=== PATIENT | male | born 1950 | race Caucasian/White ===

== ENCOUNTER → 2020-02-25 10:58 | Outpatient (POV) | payer MEDICARE, SELFPAY | PROVIDERS: Visit Provider Dermatology | DX: Z00.00 Encounter for general adult medical examination without abnormal findings (principal) ==

== ENCOUNTER → 2020-03-31 09:07 | Outpatient (POV) | payer MEDICARE, SELFPAY | PROVIDERS: Visit Provider Dermatology | DX: Z00.00 Encounter for general adult medical examination without abnormal findings (principal) ==

== ENCOUNTER → 2020-07-07 09:28 | Outpatient (POV) | payer MEDICARE, SELFPAY | PROVIDERS: Visit Provider Dermatology | DX: Z00.00 Encounter for general adult medical examination without abnormal findings (principal) ==

== ENCOUNTER 2020-08-30 14:33 | Emergency (ER) | payer MEDICARE, SELFPAY ==
[2020-08-30 14:38] VITALS: BP 132/70; PULSE 80; RESP 16; TEMP 36.8; O2SAT 98; BMI 26.5
[2020-08-30 14:45] VITALS: BP 132/70; PULSE 80; RESP 16; TEMP 36.8; O2SAT 98; BMI 26.4
--- NOTE | 2020-08-30 15:01 | CA_ITS ---
APPROVED REPORT Right Lower Extremity Venous Study for DVT. Junior Accountant: Melanie Win RVT Indications Lower Extremity Pain: Right Lower Extremity Edema: Right LEG PAIN AND SWELLING,NKI Vein Imaging CFV (R): compressive, spontaneous, phasic, augmentation FEM (R): compressive, spontaneous, phasic, augmentation POP (R): compressive, spontaneous, phasic, augmentation PTV (R): Compressible GSV (R): Compressible Peroneals (R):Compressible GAS (R): Compressible Findings Study suggests no evidence of DVT of the right lower extremity. Study suggests no evidence of SVT of the right lower extremity. Conclusion Study suggests no evidence of DVT of the right lower extremity. Study suggests no evidence of SVT of the right lower extremity. Critical Notification Physician Notified Date: 08/30/2020 Time: 16:28 Physician Name: Miranda Cabello Electronically signed by : Charlie Chavez MD 08/31/2020 16:52:53
--- NOTE | 2020-08-30 16:27 | HMH.EDUTC ---
[facility] [place] Disposition Clinical Impression: Right leg pain Disposition: Home, Self-Care Condition on Discharge: Good Instructions: DI for Leg Pain Additional Instructions: Rest the extremity, Elevate the extremity as tolerated while you are resting. Take ibuprofen for pain. I sent in a prescription to your pharmacy. Follow up with Dr. Causey (orthopedics) if you continue to have leg pain. I put in a referral but you need to call her office and schedule an appointment. Follow up with your regular doctor. GO TO THE ER FOR ANY WORSENING SYMPTOMS Prescriptions: Ibuprofen [Ibuprofen 600mg Tablet] 600 mg PO Q6HP PRN #30 tab PRN Reason: Mild Pain Transmission Status: Received by [facility] Referrals: Miranda Paris MD [Primary Care Provider] - Sarah Causey MD [Physician] - Time of Disposition: 16:33 Medical Decision Making - Medical Records Medical records reviewed: No: I reviewed the patient's medical records. - Isaias Inquiry Pt receiving controlled substance: No Vital Signs: 08/30/20 14:38 08/30/20 14:45 08/30/20 16:36 Temperature 98.2 F 98.2 F 98.2 F Temperature Source Oral Oral Pulse Rate 80 Pulse Rate [Right] 80 80 Respiratory Rate 16 16 16 Blood Pressure 132/70 Blood Pressure [Right Arm] 132/70 132/70 Blood Pressure Mean [Right Arm] 90 90 Blood Pressure Source [Right Arm] Automatic Cuff Automatic Cuff Blood Pressure Position [Right Arm] Sitting Sitting 02 Sat by Pulse Oximetry 98 98 Oxygen Delivery Method Room Air Room Air - US Data US Images: Lower Extremity ED US Reviewed: Yes: I have reviewed the patient's US results, I have viewed radiologist's interpretation Preliminary Findings: Normal/NAD [facility] [place] HPI - General Stated complaint: right leg pain, no accident Time Seen by Provider: 08/30/20 16:27 Mode of Arrival: Ambulatory Source of Information: Patient Limitations: No Limitations Description of Symptoms (Recalled from Triage Doc. by RN): PATIENT C/O RIGHT LEG PAIN X 2 WEEKS. NO KNOWN INJURY. HEENT Symptoms (Recalled from RN notes): No Resp Symptoms (Recalled from RN notes): No Skin Symptoms (Recalled from RN notes): No MS Symptoms (Recalled from RN notes): Yes Functional Status (Recalled from RN notes): WNL - History of Present Illness Provider Complaint: He c/o right leg pain for the past 2 weeks. He denies any known injury. He is worried about having a blood clot in his leg. He denies any personal or family history of dvt's. He denies any chest pain or shortness of breath. - Related Data Home Medications Medication Instructions Recorded Confirmed cardioplegic no.20 (maint 4:1) 20 20 meq PO DAILY 10/24/17 05/29/18 mEq/810 mL (potassium) perfusion ferrous fumarate 325 mg (106 mg 325 mg PO DAILY 10/24/17 05/29/18 iron) tablet sucralfate 100 mg/mL oral 10 ml PO QID 10/24/17 05/29/18 suspension triamterene 37.5 1 cap PO QAM 10/24/17 05/29/18 mg-hydrochlorothiazide 25 mg capsule Sod Picosulf/Mag Ox/Citric AC 1 packet PO DAILY 05/16/18 05/29/18 [Prepopik] Atorvastatin Calcium [Lipitor 40mg 40 mg PO HS 08/30/20 08/30/20 Tab] Previous Rx's Medication Instructions Recorded Ibuprofen [Ibuprofen 600mg 600 mg PO Q6HP PRN #30 tab 08/30/20 Tablet] Allergies Allergy/AdvReac Type Severity Reaction Status Date / Time No Known Allergies Allergy Verified 05/29/18 13:12 - Worker's Comp Is this a Worker's Comp case?: No [facility] History - Hepatitis A Screen Drug use history?: No High risk sexual behaviors?: No History of sexually transmitted infection?: No Currently employed?: No Childcare worker?: No Do you have indoor plumbing?: Yes Do you have electricity?: Yes Attestation statement:: This patient has been screened for Hepatitis A risk factors. I have reviewed the patient's past medical history: Yes Medical History: Reports:: Hyperlipidemia, Hypertension Denies:: Diabetes Mellitus Ty
[2020-08-30 16:36] VITALS: BP 132/70; PULSE 80; RESP 16; TEMP 36.8; O2SAT 98
== END 2020-08-30 16:40 | disposition home or self-care (01) ==
PROVIDERS: Emergency Provider Nurse Practitioner Family; PCP Family Medicine
DX: M79.661 Pain in right lower leg (principal); I10 Essential (primary) hypertension; E78.5 Hyperlipidemia, unspecified; Z79.899 Other long term (current) drug therapy
CPT/HCPCS: G0463; 93971; 99202

== ENCOUNTER → 2020-09-25 08:47 | Outpatient (CLI) | payer MEDICARE, SELFPAY ==
--- NOTE | 2020-09-25 08:56 | XR_ITS ---
PROCEDURE: XR TIBIA FIBULA RT 2V CLINICAL INDICATION: Rt leg pain COMPARISON: No exams were available for comparison FINDINGS: The tibia and fibula appear intact no evidence of recent or old fracture. Moderate spurring of tibial spines. There is very subtle questionable increased opacity above the patella in the suprapatellar bursa and small effusion cannot be excluded but is somewhat incompletely evaluated. If of clinical suspicion of joint effusion follow-up knee films may be helpful for evaluation. There is mild diffuse soft tissue swelling over the patella which could be due to contusion. IMPRESSION: Minor degenerate change, very questionable suprapatellar joint effusion and clinically suspicious follow-up films of the knee may be helpful. Dictated by: Dr. Ildefonso Hancock MD 09/25/2020 09:13 Dr. Ildefonso Hancock MD in [place] 09/25/2020 09:13
--- NOTE | 2020-09-25 09:49 | XR_ITS ---
PROCEDURE: XR HIP RT 2-3V W/PELVIS CLINICAL INDICATION: Rt knee/Rt hip pain COMPARISON: No exams were available for comparison FINDINGS: There are minimal osteoarthritic changes of the hips. No acute fracture or dislocation. No lytic or blastic change. Ossification of the iliolumbar ligaments. IMPRESSION: Mild osteoarthritis of the hips Dictated by: Charlie Chavez MD 09/25/2020 12:37 Charlie Chavez MD in [place] 09/25/2020 12:37
--- NOTE | 2020-09-25 09:49 | XR_ITS ---
PROCEDURE: XR KNEE RT 4V CLINICAL INDICATION: RT knee COMPARISON: No exams were available for comparison FINDINGS: No fracture or dislocation. No lytic or blastic change. There is normal mineralization. The joint spaces are well-preserved. No significant degenerative/arthritic changes. No erosive changes evident. Other findings:None. IMPRESSION: No acute findings. Dictated by: Charlie Chavez MD 09/25/2020 12:33 Charlie Chavez MD in [place] 09/25/2020 12:33
== END ==
PROVIDERS: PCP Family Medicine; Visit Provider Orthopaedic Surgery
DX: M79.604 Pain in right leg (principal); M25.551 Pain in right hip; M25.561 Pain in right knee
CPT/HCPCS: 73502; 73564; 73590

== ENCOUNTER → 2020-09-30 14:28 | Outpatient (CLI) | payer MEDICARE, SELFPAY | PROVIDERS: PCP Family Medicine; Visit Provider Orthopaedic Surgery | DX: I70.213 Atherosclerosis of native arteries of extremities with intermittent claudication, bilateral legs (principal) | CPT/HCPCS: 93923 ==

== ENCOUNTER 2021-05-14 10:26 | Emergency (ER) | payer MEDICARE, SELFPAY ==
[2021-05-14 10:30] VITALS: BP 139/82; PULSE 70; RESP 19; TEMP 36.7; O2SAT 97; BMI 29.5
--- NOTE | 2021-05-14 10:40 | XR_ITS ---
PROCEDURE: XR KNEE LT 3V CLINICAL INDICATION: PAIN COMPARISON: No exams were available for comparison FINDINGS: No fracture or dislocation. No lytic or blastic change. There is normal mineralization. There is moderate joint space narrowing medially and there is mild spurring of the tibial spines. The patella appears normal and there is no definite effusion. There is no fracture or loose body. Other findings:None. IMPRESSION: Mild degenerate change involving the medial joint space Dictated by: Dr. Ildefonso Hancock MD 05/14/2021 11:46 Dr. Ildefonso Hancock MD in [place] 05/14/2021 11:46
--- NOTE | 2021-05-14 11:07 | HMH.EDUTC ---
[facility] [place] Disposition Clinical Impression: Knee pain Qualifiers: Chronicity: unspecified Laterality: left Qualified Code(s): M25.562 - Pain in left knee Disposition: Home, Self-Care Condition on Discharge: Good Instructions: DI for Knee Pain, Diclofenac Topical (arthritis pain) Additional Instructions: *weight bearing as tolerated *RICE, Rest the extremity, Ice 15-20 minutes 3-4 times daily, Compress- wear the atif wrap as discussed as much as possible to help reduce swelling and pain, Elevate the extremity when at rest *Atif wrap is for support and help control swelling, use it except in the shower. Be sure that is not to tight but not to loose either *Elevate when resting *Topical medication applied to knee every 12 hours as needed for pain an inflammation. If need something more can take Tylenol in between doses of Ibuprofen to help Immediately follow up with your family doctor for new or worsening of symptoms, or no noticeable improvement over the next 3-5 days Return if needed Follow up with your Family Doctor if needed Prescriptions: Diclofenac Sodium [Diclofenac Sod 100gm Topical Gel] 1 g TP BID PRN #100 gm PRN Reason: Moderate Pain Transmission Status: [facility] Referrals: Miranda Paris MD [Primary Care Provider] - As needed Time of Disposition: 12:03 Medical Decision Making - Isaias Inquiry Pt receiving controlled substance: No Isaias was queried for this patient: No Vital Signs: 05/14/21 10:30 05/14/21 12:03 Temperature 98.1 F 98.1 F Temperature Source Oral Pulse Rate 70 Pulse Rate [Right Brachial] 70 Respiratory Rate 19 19 Blood Pressure 139/82 Blood Pressure [Right Arm] 139/82 Blood Pressure Mean [Right Arm] 101 Blood Pressure Source [Right Arm] Automatic Cuff Blood Pressure Position [Right Arm] Sitting 02 Sat by Pulse Oximetry 97 Oxygen Delivery Method Room Air - Lab Data Lab Results 05/14/21 10:55: Uric Acid 5.3 - Radiology Data #1 Image(s): Knee Image Reviewed: Yes I have reviewed radiologist's interpretation IMPRESSION: Mild degenerate change involving the medial joint space [facility] [place] HPI - General Stated complaint: lt knee Time Seen by Provider: 05/14/21 11:07 Mode of Arrival: Ambulatory Source of Information: Patient Limitations: No Limitations Description of Symptoms (Recalled from Triage Doc. by RN): PATIENT C/O LEFT KNEE PAIN X 1 WEEK. DENIES ANY INJURY HEENT Symptoms (Recalled from RN notes): No Resp Symptoms (Recalled from RN notes): No Skin Symptoms (Recalled from RN notes): No MS Symptoms (Recalled from RN notes): Yes Functional Status (Recalled from RN notes): WNL - History of Present Illness Provider Complaint: Patient states that he has been having pain in left knee for about a week with no known injury States that pain is on the inner aspect of his left knee and he has been using biofreeze States that pain is not constant but worse when he walks on it and does get some relief when he is off of it - Related Data Home Medications Medication Instructions Recorded Confirmed triamterene 37.5 1 cap PO QAM 10/24/17 05/14/21 mg-hydrochlorothiazide 25 mg capsule Atorvastatin Calcium [Lipitor 40mg 40 mg PO HS 08/30/20 05/14/21 Tab] Omeprazole [Omeprazole 40mg 40 mg PO DAILY 05/14/21 05/14/21 Capsule] Previous Rx's Medication Instructions Recorded Diclofenac Sodium [Diclofenac Sod 1 g TP BID PRN #100 gm 05/14/21 100gm Topical Gel] Allergies Allergy/AdvReac Type Severity Reaction Status Date / Time No Known Allergies Allergy Verified 09/25/20 09:19 - Worker's Comp Is this a Worker's Comp case?: No [facility] History - Hepatitis A Screen Drug use history?: No High risk sexual behaviors?: No History of sexually transmitted infection?: No Currently employed?: No Childcare worker?: No Do you have indoor plumbing?: Yes Do you have electricity?: Yes Attestation statement:: This darrell
[2021-05-14 11:24] LABS: Uric Acid 5.3 mg/dl (3.5-8.5)
[2021-05-14 12:03] VITALS: BP 139/82; PULSE 70; RESP 19; TEMP 36.7; O2SAT 97
== END 2021-05-14 12:08 | disposition home or self-care (01) ==
PROVIDERS: Emergency Provider Nurse Practitioner; PCP Family Medicine
DX: M25.562 Pain in left knee (principal); I10 Essential (primary) hypertension; E78.5 Hyperlipidemia, unspecified
CPT/HCPCS: G0463; 73562; 84550; 99202

== ENCOUNTER 2022-01-01 12:46 | Emergency (ER) | payer MEDICARE, SELFPAY ==
[2022-01-01 12:46] VITALS: BP 153/88; PULSE 59; RESP 16; TEMP 36.8; O2SAT 98; BMI 28.7
--- NOTE | 2022-01-01 13:54 | HMH.EDGENADL ---
ED Disposition Clinical Impression: Low back pain Qualifiers: Chronicity: acute Back pain laterality: midline Sciatica presence: without sciatica Qualified Code(s): M54.50 - Low back pain, unspecified Osteoarthritis of lumbar spine Qualifiers: Spinal osteoarthritis complication: without myelopathy or radiculopathy Qualified Code(s): M47.816 - Spondylosis without myelopathy or radiculopathy, lumbar region Disposition: Home, Self-Care Condition on Discharge: Good Instructions: DI for Low Back Pain Additional Instructions: Ibuprofen and [place] as needed for pain. Prednisone as prescribed. Follow-up with your primary care provider next week, call Monday to make appointment. Additional instructions for BACK PAIN: See your physician as soon as possible for further evaluation. Return immediately if back pain becomes intolerable, or if fever, numbness or weakness of your legs, loss of control of your bowels or bladder. Prescriptions: Hydrocod/Acet 5/325 mg [[place] 5/325mg tablet] 1 tab PO Q6HP PRN #10 tab PRN Reason: Pain Transmission Status: Received by [facility] Ibuprofen [Ibuprofen 800mg Tablet] 800 mg PO Q8HP PRN #15 tab PRN Reason: Moderate Pain Transmission Status: Received by [facility] predniSONE [Prednisone 20mg Tab] 20 mg PO BID #10 tab Transmission Status: Received by [facility] Referrals: Miranda Paris MD [Primary Care Provider] - - Critical Care Critical Care Time: No Attestation: On 01/01/22, the high probability of a clinically significant, sudden or life threatening deterioration of the following system(s) required my full and direct attention, intervention and personal management. The time I documented below is in addition to time spent performing reported procedures but includes the following listed in this critical care notation. Medical Decision Making - Isaias Inquiry Pt receiving controlled substance: Yes Isaias was queried for this patient: Yes Risks and benefits of using a controlled substance: were discussed with pt by me Vital Signs: 01/01/22 12:46 Temperature 98.2 F Temperature Source Oral Pulse Rate [Radial] 59 L Respiratory Rate 16 Blood Pressure [Right Arm] 153/88 H Blood Pressure Mean [Right Arm] 109 Blood Pressure Position [Right Arm] Sitting 02 Sat by Pulse Oximetry 98 Orders (Tests/Meds): ED MEDICATIONS Discontinued Medications Generic Name Dose Route Start Last Admin Trade Name Jonna PRN Reason Stop Dose Admin Dexamethasone Sodium Phosphate 10 mg 01/01/22 15:01 01/01/22 15:09 Dexamethasone 4mg/Ml 1ml Vial IM 01/01/22 15:02 10 mg ONCE ONE Administration Ketorolac Tromethamine 30 mg 01/01/22 15:01 01/01/22 15:09 Ketorolac 60mg/2ml Vial IM 01/01/22 15:02 30 mg ONCE ONE Administration - Radiology Data #1 Image(s): L-Spine Image Reviewed: Yes I reviewed the patient's radiology image, Yes I have reviewed radiologist's interpretation Preliminary interpretation by me: Large osteophytes in the lower lumbar spine. No acute fractures or dislocations. PROCEDURE INFORMATION: Exam: XR Lumbosacral Spine Exam date and time: 01/01/2022 2:28 PM Age: 71 years old Clinical indication: Low back pain and lumbago; Additional info: Lbp w C/O shooting pains x wks, nkt TECHNIQUE: Imaging protocol: Radiologic exam of the lumbosacral spine. Views: 2 or 3 views. COMPARISON: CR XR HIP RT 2-3V W/PELVIS 09/25/2020 10:08 AM FINDINGS: Bones/joints: Preserved lumbar alignment. No pars interarticularis defects. Diffuse facet joint hypertrophy. Decreased intervertebral disc space at L5-S1. Remainder of the intervertebral disc spaces are well preserved. Vertebral body heights are well preserved. Multilevel anterior osteophytes, worse at L4-L5 and L5-S1. There is no evidence of acutely displaced skeletal fractures. No aggressive osseous lesions. The spinal canal
--- NOTE | 2022-01-01 14:29 | XR_ITS ---
PROCEDURE INFORMATION: Exam: XR Lumbosacral Spine Exam date and time: 01/01/2022 2:28 PM Age: 71 years old Clinical indication: Low back pain and lumbago; Additional info: Lbp w C/O shooting pains x wks, nkt TECHNIQUE: Imaging protocol: Radiologic exam of the lumbosacral spine. Views: 2 or 3 views. COMPARISON: CR XR HIP RT 2-3V W/PELVIS 09/25/2020 10:08 AM FINDINGS: Bones/joints: Preserved lumbar alignment. No pars interarticularis defects. Diffuse facet joint hypertrophy. Decreased intervertebral disc space at L5-S1. Remainder of the intervertebral disc spaces are well preserved. Vertebral body heights are well preserved. Multilevel anterior osteophytes, worse at L4-L5 and L5-S1. There is no evidence of acutely displaced skeletal fractures. No aggressive osseous lesions. The spinal canal is patent. Soft tissues: There is no significant soft tissue swelling. Other findings: There is no evidence of joint dislocation. IMPRESSION: [id number]-np-[id number] multilevel degenerative changes without acute skeletal pathology.
[2022-01-01 15:30] VITALS: BP 123/74; PULSE 78; RESP 16; TEMP 36.6; O2SAT 98
== END 2022-01-01 15:30 | disposition home or self-care (01) ==
PROVIDERS: Emergency Provider Emergency Medicine; PCP Family Medicine
DX: M54.50 Low back pain, unspecified (principal); M47.816 Spondylosis without myelopathy or radiculopathy, lumbar region; E78.5 Hyperlipidemia, unspecified; I10 Essential (primary) hypertension
CPT/HCPCS: 72100; 96374; 96375; 99284

== ENCOUNTER → 2022-05-16 10:10 | Outpatient (CLI) | payer MEDICARE, SELFPAY ==
[2022-05-16 13:32] LABS: Basophils # 0.1 K/mm3 (0-0.2); Basophils % 0.7 % (0.1-2.0); Eosinophils # 0.3 K/mm3 (0.0-0.4); Eosinophils % 3.7 % (0.1-12.0); Hematocrit 50.7 % (42.0-52.0); Hemoglobin 16.2 g/dL (14.1-18.0); Lymphocytes # 1.8 K/mm3 (0.7-4.5); Mean Corpuscular HGB Conc 31.9 g/dL (31.8-35.4); Mean Corpuscular Hemoglobin 28.8 pg (27.0-31.2); Mean Corpuscular Volume 90.3 fl (80-94); Monocytes # 0.4 K/mm3 (0.1-1.0); Monocytes % 6.1 % (1.7-9.3); Neutrophils # 4.5 K/mm3 (1.8-7.8); Neutrophils % 64.4 % (37.0-80.0); Platelet Count 208 K/mm3 (142-424); Red Blood Count 5.61 M/mm3 (4.60-6.20); White Blood Count 7.1 K/mm3 (4.8-10.8)
[2022-05-16 13:40] LABS: Alanine Aminotransferase 29 U/L (12-78); Albumin/Globulin Ratio 1.4 (1.1-1.8); Alkaline Phosphatase 112 U/L (38-126); Anion Gap 13.7 mEq/L (5-15); Aspartate Amino Transferase 32 U/L (17-59); Bilirubin,Total 0.7 mg/dl (0.2-1.3); Blood Urea Nitrogen 15 mg/dl (9-20); Calcium 9.4 mg/dl (8.4-10.2); Carbon Dioxide 29 mmol/L (22.0-30.0); Chloride 100 mmol/L (98-107); Chol/HDL Ratio 3.2 (1-3.5); Cholesterol 152 mg/dl (140-200); Estimated Glomerular Filt Rate 133 ml/min (>60); GFR (African American) 161 ML/MIN (>60); Globulin 2.8 g/dL (1.3-3.2); Glucose 126 mg/dl (74-100); HDL Cholesterol 47 mg/dl (40-60); Potassium 3.7 mmoL/L (3.5-5.1); Sodium 139 mmol/L (136-145); Total Protein,Serum 6.8 g/dl (6.3-8.2); Triglycerides 178 mg/dl (30-150); VLDL Cholesterol 36 mg/dL (0-40)
[2022-05-16 13:51] LABS: Direct LDL Cholesterol 76.19 mg/dL (100-129)
[2022-05-16 13:56] LABS: Free T4 (Free Thyroxine) 0.91 ng/dl (0.78-2.19)
[2022-05-16 14:10] LABS: Prostate Specific Ag Screen 1.2 ng/ml (0.0-4.0); Thyroid Stimulating Hormone 3.68 uIU/mL (0.465-4.68)
[2022-05-17 08:47] LABS: Testosterone,Total 312 ng/dL (264-916)
== END ==
PROVIDERS: PCP Family Medicine; Visit Provider Family Medicine
DX: E78.5 Hyperlipidemia, unspecified (principal); R53.83 Other fatigue; Z12.5 Encounter for screening for malignant neoplasm of prostate; S30.1XXA Contusion of abdominal wall, initial encounter
CPT/HCPCS: 80053; 80061; 84403; 84439; 84443; 85025; G0103

== ENCOUNTER → 2022-05-20 10:54 | Outpatient (CLI) | payer MEDICARE, SELFPAY | PROVIDERS: PCP Family Medicine; Visit Provider Family Medicine | DX: R01.1 Cardiac murmur, unspecified (principal) | CPT/HCPCS: 93306 ==

== ENCOUNTER 2023-05-06 21:31 | Emergency (ER) | payer MEDICARE, SELFPAY ==
[2023-05-06 22:06] VITALS: BP 187/101; PULSE 63; RESP 14; TEMP 36.8; O2SAT 97; BMI 28.7
--- NOTE | 2023-05-06 22:11 | XR_ITS ---
PROCEDURE INFORMATION: Exam: XR Right Elbow Exam date and time: 05/06/2023 10:16 PM Age: 73 years old Clinical indication: Pain; Elbow; Right; Additional info: Arm vs farm equip TECHNIQUE: Imaging protocol: Radiologic exam of the right elbow. Views: 1 or 2 views. COMPARISON: CR XR FOREARM RT 2V 05/06/2023 10:13 PM FINDINGS: Bones/joints: Severe arthritic type changes of the elbow. No displaced fracture. Small elbow effusion. Soft tissues: Soft tissues are unremarkable. IMPRESSION: 1. No acute displaced fracture. Recommend correlation with history/physical exam consider follow-up radiographs in 7-10 days. 2. Severe arthritic type changes of the elbow.
--- NOTE | 2023-05-06 22:11 | XR_ITS ---
PROCEDURE INFORMATION: Exam: XR Right Humerus Exam date and time: 05/06/2023 10:10 PM Age: 73 years old Clinical indication: Pain; Upper arm; Right; Additional info: Arm vs farm equip TECHNIQUE: Imaging protocol: Radiologic exam of the right humerus. Views: 2 or more views. COMPARISON: CR CXR1 CHEST-PORTABLE 05/04/2017 1:36 PM FINDINGS: Bones/joints: Anatomic alignment is maintained. No acute fracture. Soft tissues: Normal. IMPRESSION: No acute findings.
--- NOTE | 2023-05-06 22:11 | XR_ITS ---
PROCEDURE INFORMATION: Exam: XR Right Forearm Exam date and time: 05/06/2023 10:13 PM Age: 73 years old Clinical indication: Pain; Lower or forearm; Right; Additional info: Arm vs farm equipment TECHNIQUE: Imaging protocol: Radiologic exam of the right forearm. Views: 2 views. COMPARISON: No relevant prior studies available. FINDINGS: Bones/joints: Severe arthritic changes of the elbow and wrist. No displaced fracture. Small effusion. Soft tissues: Normal. IMPRESSION: 1. No displaced fracture. 2. Severe arthritic changes of the elbow and wrist. 3. Small elbow effusion. Recommend dedicated radiographs.
--- NOTE | 2023-05-06 23:38 | HMH.EDUPEXT ---
Discharge Plan Disposition Patient Disposition: Home, Self-Care Condition: Good Prescriptions Prescriptions: No Action triamterene-hydrochlorothiazid 37.5-25 mg capsule 1 cap PO QAM Clenpiq 10 mg-3.5 gram- 12 gram/175 mL solution 175 ml PO DAILY Qty: 350 0RF Rx Instructions: take first dose at 5-9PM evening before colonoscopy; 2nd dose the next day approximately 5 hrs before colonoscopy atorvastatin 40 MG tablet 40 mg PO HS omeprazole 40 MG capsule,delayed release(DR/EC) 40 mg PO DAILY diclofenac sodium 100 GM gel 1 g topical BID PRN (Reason: Moderate Pain) Qty: 100 0RF Rx Instructions: apply to knee twice daily for pain Referrals Follow up/Referrals: Miranda Paris MD [Primary Care Provider] - See instructions Clinical Impressions Clinical Impression: Arthralgia of elbow, right Instructions Patient Instructions: DI for Elbow Pain Discharge ED Provider: Emilee Flynn Upper Extremity HPI General Chief Complaint: Extremity Injury, Upper Stated Complaint: AO05/06@1530 RT arm inj Time Seen by Provider: 05/06/23 23:37 Mode of Arrival: Family Vehicle Source of Information: Patient Limitations: No Limitations Description of Symptoms (Recalled from ER Triage Doc. by RN): patient states he was moving farm equipment around when he somehow injured his right arm and wants it to be evaluated. No evidence of bruising or obvious injury. Full ROM with the addition of pain at this time. History of Present Illness HPI narrative: (1) Related Data Home Medications Medication Instructions Recorded Confirmed triamterene 37.5 1 cap PO QAM Hypertension 10/24/17 05/16/22 mg-hydrochlorothiazide 25 mg capsule atorvastatin 40 mg tablet 40 mg PO HS Cholesterol 08/30/20 05/16/22 omeprazole 40 mg capsule,delayed 40 mg PO DAILY GERD 05/14/21 05/16/22 release Previous Rx's Medication Instructions Recorded diclofenac sodium 3 % topical gel 1 g topical BID PRN Moderate Pain 05/14/21 #100 grams sod picosulf 10 mg-magnes 3.5 175 ml PO DAILY 2 doses #350 mL 12/16/22 gram-citric 12 gram/175 mL oral solution (Clenpiq) Allergies Allergy/AdvReac Type Severity Reaction Status Date / Time No Known Allergies Allergy Verified 05/16/22 09:10 [facility] Disclaimer: The information contained in this section may have been updated after the patient was seen, as this information can be updated by other users. Social History (Reviewed 05/07/23 @ 01:48 EDT by Emilee Flynn MD) Smoking Status: Unknown if ever smoked alcohol intake: never counseling provided: provider counseling substance use type: denies use current occupational status: other Travel in the last 8 weeks: None caffeine: No ROS Obtained: Yes Systems reviewed as appropriate & no additional complaints except as documented Physical Exam General General appearance: alert and in no apparent distress Head Head exam: atraumatic, normocephalic and normal inspection Eye Eye exam: Present normal appearance, PERRL and EOMI ENT ENT exam: Present normal exam, normal oropharynx, mucous membranes moist, TM's normal bilaterally and normal external ear exam Neck Neck exam: Present normal inspection, full ROM and trachea midline; Absent meningismus or lymphadenopathy Chest Chest inspection: Present normal inspection and symmetric chest wall rise; Absent tenderness Respiratory Respiratory exam: Present normal lung sounds bilaterally; Absent respiratory distress Cardiovascular Cardiovascular exam: Present regular rate and normal rhythm; Absent JVD Abdominal Exam Abdominal exam: Present soft and normal bowel sounds; Absent distention, tenderness or guarding Extremities Exam Extremities exam: Present normal inspection and normal capillary refill; Absent full ROM (Limited range of motion of the right elbow due to pain. No significant swelling, redness, warmth, changes in strength or sensation
[2023-05-07 00:05] VITALS: BP 166/89; PULSE 60; RESP 16; TEMP 36.7; O2SAT 97
== END 2023-05-07 00:07 | disposition home or self-care (01) ==
PROVIDERS: Emergency Provider Emergency Medicine; PCP Family Medicine
DX: M25.521 Pain in right elbow (principal)
CPT/HCPCS: 73060; 73070; 73090; 99283

== ENCOUNTER 2023-11-10 09:57 | Emergency (ER) | payer MEDICARE, SELFPAY ==
[2023-11-10 10:05] VITALS: BP 152/87; PULSE 58; RESP 18; TEMP 36.5; O2SAT 96; BMI 29.7
--- NOTE | 2023-11-10 10:16 | ED_ITS ---
Discharge Plan Disposition Patient Disposition: Home, Self-Care Condition: Good Prescriptions Prescriptions: No Action triamterene-hydrochlorothiazid 37.5-25 mg capsule 1 cap PO QAM atorvastatin 40 MG tablet 40 mg PO HS omeprazole 40 MG capsule,delayed release(DR/EC) 40 mg PO DAILY diclofenac sodium 100 GM gel 1 g topical BID PRN (Reason: Moderate Pain) Qty: 100 0RF Rx Instructions: apply to knee twice daily for pain Referrals Follow up/Referrals: Miranda Paris MD [Primary Care Provider] - See instructions Sathish Connell DO [Staff Physician] - See instructions Activity Restrictions/Add. Instructions Additional Instructions/Restrictions: Rest your legs for the next few days, Elevate the extremities as tolerated while you are resting. Take the medication as directed. Follow up with Dr. Connell (orthopedics) (or your orthopedic physician of choice). I put in a referral but you need to call his office and schedule an appointment. Follow up with your regular doctor. GO TO THE ER FOR ANY WORSENING SYMPTOMS Clinical Impressions Clinical Impression: Knee pain, bilateral, Pain of left leg, Osteoarthritis Instructions Patient Instructions: Osteoarthritis, DI for Osteoarthritis, DI for Knee Pain Discharge ED Provider: Earnest Cabello [facility] General Stated complaint: leg pain Time Seen by Provider: 11/10/23 10:16 History of Present Illness Provider Complaint: He states that he has had bilateral knee pain and left lower leg pain on and off for the past several months. He denies any injury. He states that his left knee does swell some occasionally. He denies any fever/chills/redness. Related Data Home Medications Medication Instructions Recorded Confirmed triamterene 37.5 1 cap PO QAM Hypertension 10/24/17 11/10/23 mg-hydrochlorothiazide 25 mg capsule atorvastatin 40 mg tablet 40 mg PO HS Cholesterol 08/30/20 11/10/23 omeprazole 40 mg capsule,delayed 40 mg PO DAILY GERD 05/14/21 11/10/23 release Previous Rx's Medication Instructions Recorded diclofenac sodium 3 % topical gel 1 g topical BID PRN Moderate Pain 05/14/21 #100 grams Allergies Allergy/AdvReac Type Severity Reaction Status Date / Time No Known Allergies Allergy Verified 05/16/22 09:10 [facility] Disclaimer: The information contained in this section may have been updated after the patient was seen, as this information can be updated by other users. Social History Smoking Status: Unknown if ever smoked alcohol intake: never counseling provided: provider counseling substance use type: denies use current occupational status: other Travel in the last 8 weeks: None caffeine: No ROS Obtained: Yes All systems reviewed & no additional complaints except as documented Constitutional Constitutional: Denies chills and Denies fever(s) Eyes Eyes: Denies eye discharge ENT Ears, Nose, Mouth, and Throat: Denies dizziness, Denies otalgia, Denies neck pain and Denies sore throat Cardiovascular Cardiovascular: Denies chest pain Respiratory Respiratory: Denies shortness of breath, Denies chest congestion, Denies cough, Denies stridor and Denies wheezing Gastrointestinal Gastrointestingal: Denies nausea or vomiting Musculoskeletal Musculoskeletal: Reports as per HPI, Reports arthralgias, Denies back pain and Denies neck pain Integumentary/Breasts Skin/Breast: Denies redness, Denies rash, Denies unusual bruising and Denies wounds Neurologic Neurologic: Denies dizziness and Denies paresthesias Allergic/Immunologic Allergic/Immunologic: Denies wheezing Physical Exam General General appearance: alert and in no apparent distress Head Head exam: atraumatic, normocephalic and normal inspection Eye Eye exam: Present normal appearance, PERRL and EOMI ENT ENT exam: Present normal exam, normal oropharynx, mucous membranes moist, TM's normal bilaterally and normal external ear exam Neck Neck exam: Present normal inspection, full ROM and trachea midline; Absent meningismus or lymphadenopathy Chest Chest inspection: Present normal inspection and symmetric chest wall rise; Absent tenderness Respiratory Respiratory exam: Present normal lung sounds bilaterally; Absent respiratory distress Cardiovascular Cardiovascular exam: Present regular rate and normal rhythm; Absent JVD Abdominal Exam Abdominal exam: Present soft and normal bowel sounds; Absent distention, tenderness or guarding Extremities Exam Extremities exam: Present normal capillary refill; Absent calf tenderness Expanded Lower Extremity Exam Left: Upper leg exam: Present normal inspection and full ROM; Absent tenderness Knee exam: Present tenderness, swelling, effusion and knee extension intact; Absent full ROM, abrasion, laceration, ecchymosis, deformity, crepitus, dislocation, erythema, anterior drawer sign, posterior draw sign, pain with valgus, laxity with valgus, pain with varus or laxity with varus Lower leg exam: Present normal inspection, full ROM and Achilles tendon intact; Absent tenderness or Homans' sign Ankle exam: Present normal inspection and full ROM; Absent tenderness, tenderness over talofibular lig or anterior draw sign Foot/toe exam: Present normal inspection and full ROM; Absent tenderness Neurovascular/Tendon exam: Present normal capillary refill and normal 2- point discrimination; Absent pulse deficit, motor deficit, sensory deficit, tendon deficit, extremity cold to touch or pallor Gait: observed and normal Right: Hip/Pelvis exam: Present normal inspection and full ROM; Absent tenderness Upper leg exam: Present normal inspection and full ROM; Absent tenderness Knee exam: Present normal inspection, full ROM and knee extension intact; Absent tenderness, swelling, abrasion, laceration, ecchymosis, deformity, crepitus, dislocation, erythema, effusion, anterior drawer sign, posterior draw sign, pain with valgus, laxity with valgus, pain with varus or laxity with varus Lower leg exam: Present normal inspection, full ROM and Achilles tendon intact; Absent tenderness or Homans' sign Ankle exam: Present normal inspection and full ROM; Absent tenderness, tenderness over talofibular lig or anterior draw sign Foot/toe exam: Present normal inspection and full ROM; Absent tenderness Neurovascular/Tendon exam: Present normal capillary refill and normal 2- point discrimination; Absent pulse deficit, motor deficit, sensory deficit, tendon deficit, extremity cold to touch or pallor Gait: observed and normal Back Exam Back exam: Present normal inspection; Absent tenderness Neurological Exam Neurological exam: Present alert and oriented X3 Psychiatric Psychiatric exam: Present normal affect and normal mood Skin Skin exam: Present warm, dry, intact and normal color Lymphatic Lymphatic Findings: no adenopathy Medical Decision Making Medical Records Medical records reviewed: No I reviewed the patient's medical records. Isaias Inquiry Pt receiving controlled substance: No Lab Data Lab results reviewed: No I reviewed the patient's lab results.
[2023-11-10 10:58] VITALS: BP 152/87; PULSE 58; RESP 18; TEMP 36.5; O2SAT 96
== END 2023-11-10 10:58 | disposition home or self-care (01) ==
PROVIDERS: Emergency Provider Nurse Practitioner Family; PCP Family Medicine
DX: M25.561 Pain in right knee (principal); M25.562 Pain in left knee; M79.662 Pain in left lower leg; M17.0 Bilateral primary osteoarthritis of knee
CPT/HCPCS: 96372; 99212; 99214; G0463

== ENCOUNTER 2023-12-06 09:40 | Outpatient (CLI) | payer MEDICARE, SELFPAY ==
--- NOTE | 2023-12-06 09:42 | XR_ITS ---
FINAL REPORT CLINICAL HISTORY: lt knee pain COMPARISON: 05/14/2021 FINDINGS: Three views of the left knee reveal no evidence of fracture or dislocation. The bony alignment is normal. Mild degenerative change is present, with medial compartment narrowing. A small joint effusion is present. No localized soft tissue abnormality is seen. IMPRESSION: No acute abnormality identified. Mild degenerative change, with medial compartment narrowing and a small joint effusion. Reviewed, Interpreted and Dictated by Carlyle Gimenez III, MD Transcribed by Sugar Torres Authenticated and [facility]
== END 2023-12-06 23:59 | disposition home or self-care (01) ==
LOC: RAD 09:41
PROVIDERS: PCP Family Medicine; Visit Provider Orthopaedic Surgery
DX: M25.562 Pain in left knee (principal)
CPT/HCPCS: 73562

== ENCOUNTER 2024-04-29 08:00 | Outpatient (RCR) | payer MEDICARE, SELFPAY ==
--- NOTE | 2024-04-01 15:58 | HMH.PTOPEV ---
PT Outpatient Evaluation Rehab PT Outpatient Evaluation Start: 04/01/24 15:26 Freq: Status: Active Protocol: Document 04/01/24 15:26 DEEDEE (Rec: 04/01/24 15:58 DEEDEE [id number]) E-signed By Stewart Martel, PT Outpatient Therapy Subjective History Subjective History This is the initial PT eval for Charlie Stephenson, 74 yowm who presents with c/o L posterior thigh and medial knee pain x ~ 2-3 mos with insidious onset of symptoms. He reports he received an injection several weeks ago on the lateral side of the L knee without improvement, but received another one on the medial side of the L knee last week with significant reduction of symptoms. He reports pain is worse with certain activities, especially getting in/out of the car. He reports no significant PMH. New diagnosis of cancer in past 12 No months? Chief Complaint Pain,Stiff Symptom Type Sharp Symptoms Relieved By Rest/Positioning Symptoms Aggravated By Physical Activity Prior Functional Limitations None Current Functional Limitations Stairs Symptom Description Intermittent,Activity Dependent Level of pain today (0-10) 0 Pain scale - at its best (0-10) 0 Pain scale - at its worst (0-10) 10 Hip/Knee Eval Gait Observation General Gait Pattern Observation No Deviations/Normal Palpation Tenderness left Knee Palpation Finding Tenderness Knee Palpation Overall Comment medial knee jt line, distal hams 1/4 MMT Hip Flexion Strength Grade 3+ Fair+ Hip Abduction Strength Grade 4 Good Hip Adduction Strength Grade 5 Normal Hip Extension Strength Grade 4 Good Hip External Rotation Strength Grade 4 Good Hip Internal Rotation Strength Grade 4 Good Knee Extension Strength Grade 5 Normal Knee Flexion Strength Grade 5 Normal ROM Hip ROM Reason Not Measured Within Functional Limits Knee Extension Active Range of Motion ( 0 degrees) Knee Flexion Active Range of Motion ( 0-110 degrees) Special Tests Hip Bowstring (Cram) Test Negative Left,Negative Right Sciatic Nerve Tension Test Negative Left,Negative Right Hip Scouring (Quadrant) Test Negative Left,Negative Right Knee Apley Compression Test Negative Right,Positive Left Knee Anterior Raymond Test Negative Left,Negative Right Knee Posterior Sag ([employer]) Test Negative Left,Negative Right Knee Valgus Stress Test Negative Left,Negative Right Knee Varus Stress Test Negative Left,Negative Right Knee Thierry Test Negative Left,Negative Right Lower Extremity Functional Index Activities Today, do you or would you have any difficulty at all with: a.Any of your usual work, housework or No difficulty school activities b. Your usual hobbies, recreational or No difficulty sporting activities c. Getting into or out of the bath No difficulty d. Walking between rooms No difficulty e. Putting on your shoes or socks No difficulty f. Squatting Moderate difficulty g. Lifting an object, like a bag of No difficulty groceries from the floor h. Performing light activities around No difficulty your home i. Performing heavy activities around No difficulty your home j. Getting into or out of a car Moderate difficulty k. Walking 2 blocks Moderate difficulty l. Walking a mile Moderate difficulty m. Going up or down 10 stairs (about 1 Moderate difficulty flight of stairs) n. Standing for 1 hour A little bit of difficulty o. Sitting for 1 hour No difficulty p. Running on even ground Moderate difficulty q. Running on uneven ground A little bit of difficulty r. Making sharp turns while running fast Moderate difficulty s. Hopping Moderate difficulty t. Rolling over in bed No difficulty LEFI Score Lower Extremity Functional Index Score 62 Outpatient Therapy Assessment Impairments Problems/Impairmments Palpation Tenderness,Impaired Range of Motion,Impaired Strength,Impaired Endurance, Impaired Walking,Impaired Household Care,Impaired Stair Climbing,Subjective C/O Pain, Impaired Self Care/Self Management Prognosis Rehab Potential Good Comment Signs and symptoms consistent with hamstring tightness with unknown L knee dysfunction causing pain. Skilled therapy is indicated to improve pain and L LE ROM and strength to return pt to PLOF. Clinical Impression Consistent with Diagnosis Yes Short Term Goals Number of Weeks 2 Increase Range of Motion Yes: L knee 0-120 deg Increase Strength Yes: L LE at least 4/5 throughout Improve Ability to Climb Stairs Yes: 1 flight without pain Improve LEFI Score Yes: >67 Decrease Subjective C/O Pain Yes: 8/10 L knee at worst Patient to be Ind w/ HEP Yes Scientist Goals Number of Weeks 4 Decreased Palpation Tenderness Yes: 0/4 L knee Increase Range of Motion Yes: L knee 0-120 deg Increase Strength Yes: L LE 5/5 throughout Increase Ability to Drive/Ride in Car Yes: get in/out of vehicle without pain Improve Ability For Household Care Yes: without pain Improve LEFI Score Yes: >75 Decrease Subjective C/O Pain Yes: 4/10 at worst L knee Patient to be Ind w/ Advanced HEP Yes Outpatient Therapy Plan of Care Treatment Plan May Include Therapeutic Exercise Including Home Yes Exercise Program Manual Therapy Techniques Yes Neuromuscular Re-education Yes Therapeutic Activities to Return to Yes Previous Functional/Work Level ADL/Self Care Education Yes Thermal Modalities Yes Electrical Stimulation Yes Ultrasound/Phonophoresis Yes Iontophoresis Yes Orthotics/Bracing/Splinting Yes Vasopneumatic Compression Pump Yes Massage Yes Eval/Re-Eval Yes Frequency Times per week 2-3 Duration Number of Weeks 4 Addendums This patient is a candidate for social No or vocational rehab? Patient/Guardian verbally acknowledges Yes understanding of treatment program and consents to further treatment? Patient/Guardian verbally acknowledges Yes understanding of diagnosis, prognosis and goals for treatment? Eval Complexity PT Charges 58661 - High Complexity Shoulder/Elbow Eval Shoulder Objective Measurements Elbow Objective Measurements PHYSICIAN CERTIFICATION: I certify the specified therapy services for Charlie Stephenson are required, authorized, and reviewed every 30 days.
== END 2024-04-29 23:59 | disposition home or self-care (01) ==
LOC: PT 08:00
PROVIDERS: Visit Provider Physician Assistant
DX: M70.52 Other bursitis of knee, left knee (principal); S76.312A Strain of muscle, fascia and tendon of the posterior muscle group at thigh level, left thigh, initial encounter
CPT/HCPCS: 97110; 97163; 97530

== ENCOUNTER 2024-07-15 08:56 | Outpatient (RCR) | payer MEDICARE, SELFPAY ==
--- NOTE | 2024-07-15 09:57 | HMH.PTOPEV ---
PT Outpatient Evaluation Rehab PT Outpatient Evaluation Start: 07/15/24 09:01 Freq: Status: Active Protocol: Document 07/15/24 09:38 BRYON (Rec: 07/15/24 09:57 BRYON [id number]) E-signed By Maikol Jonas, PT Outpatient Therapy Subjective History Subjective History The pt is a 74 yom who presents to [facility] outpatient PT with complaints of L knee pain that has been ongoing for approximately 6 months of insidious onset. He reports that he had a cortisone injection about a week ago, which did not help. He reports that he has the most pain whenever he has to pick his leg up, such as getting into/ out of the car. He reports that he underwent a month of PT in April, which helped at the time but then his knee started hurting again recently . The pt denies numbness and tingling and denies any falls. New diagnosis of cancer in past 12 No months? Chief Complaint Pain Symptom Type Sharp Symptoms Relieved By Nothing Symptoms Aggravated By Standing,Bending/Stooping, Physical Activity,Walking, Lifting Prior Functional Limitations None Current Functional Limitations Lifting,Sleeping,Standing, Sitting,Squatting,Walking, Stairs Symptom Description Intermittent,Activity Dependent Level of pain today (0-10) 6 Pain scale - at its best (0-10) 0 Pain scale - at its worst (0-10) 10 Hip/Knee Eval Gait Observation General Gait Pattern Observation No Deviations/Normal Palpation Tenderness left Knee Palpation Finding Tenderness Knee Palpation Overall Comment TTP 2/4 to distal Hamstring attachment MMT Hip Flexion Strength Grade 3+ Fair+ Hip Abduction Strength Grade 3+ Fair+ Hip Extension Strength Grade 3+ Fair+ Knee Extension Strength Grade 5 Normal Knee Flexion Strength Grade 4- Good- ROM Knee Extension Active Range of Motion ( 0 degrees) Knee Flexion Active Range of Motion ( 114 degrees) Sensation bilateral Comment Intact Special Tests Hip Breana's Test Negative Left,Negative Right Hip Lio Test Negative Left,Negative Right Hip Piriformis Test Negative Left,Negative Right Sciatic Nerve Tension Test Negative Left,Negative Right Knee Anterior Raymond Test Negative Left,Negative Right Knee Valgus Stress Test Negative Left,Negative Right Knee Varus Stress Test Negative Left,Negative Right Knee Thierry Test Negative Left,Negative Right Lower Extremity Functional Index Activities Today, do you or would you have any difficulty at all with: a.Any of your usual work, housework or No difficulty school activities b. Your usual hobbies, recreational or Quite a bit of difficulty sporting activities c. Getting into or out of the bath No difficulty d. Walking between rooms A little bit of difficulty e. Putting on your shoes or socks A little bit of difficulty f. Squatting Extreme difficulty or unable to perform activity g. Lifting an object, like a bag of No difficulty groceries from the floor h. Performing light activities around No difficulty your home i. Performing heavy activities around Extreme difficulty or unable your home to perform activity j. Getting into or out of a car Extreme difficulty or unable to perform activity k. Walking 2 blocks A little bit of difficulty l. Walking a mile Moderate difficulty m. Going up or down 10 stairs (about 1 Quite a bit of difficulty flight of stairs) n. Standing for 1 hour A little bit of difficulty o. Sitting for 1 hour No difficulty p. Running on even ground Quite a bit of difficulty q. Running on uneven ground Extreme difficulty or unable to perform activity r. Making sharp turns while running fast Extreme difficulty or unable to perform activity s. Hopping Extreme difficulty or unable to perform activity t. Rolling over in bed A little bit of difficulty LEFI Score Lower Extremity Functional Index Score 40 Miscellaneous Dx PT Eval Objective Objective Comparable Sign: Active hip flexion with hamstring elongation, active hamstring activation and palpation to distal hamstring. Outpatient Therapy Assessment Impairments Problems/Impairmments Palpation Tenderness,Impaired Range of Motion,Impaired Strength,Impaired Transfers, Impaired Household Care, Impaired Squatting,Subjective C/O Pain Prognosis Rehab Potential Good Comment Pt presents with signs and symptoms consistent with distal hamstring strain. Pt would benefit from skilled PT to address his current impairments, prevent further injuries and to promote a return to his PLOF. Clinical Impression Consistent with Diagnosis Yes Short Term Goals Number of Weeks 4 Decreased Palpation Tenderness Yes: 1/4 to distal HS Increase Range of Motion Yes: 0-125 L knee Increase Strength Yes: 4/5 to L knee/hip Increase Ability to Stand Yes: 30 minutes without increasing pain Increase Ability to Drive/Ride in Car Yes: Get into/out of car without using UE to lift leg Improve LEFI Score Yes: to 50 Decrease Subjective C/O Pain Yes: 5/10 with above activities Patient to be Ind w/ HEP Yes Jail Goals Number of Weeks 8 Decreased Palpation Tenderness Yes: 0/4 to distal HS Increase Strength Yes: 5/5 to L hip/knee Increase Ability to Drive/Ride in Car Yes: Get into/out of the car with no difficulties Improve LEFI Score Yes: to 60 Decrease Subjective C/O Pain Yes: 3/10 with above activities Patient to be Ind w/ Advanced HEP Yes Outpatient Therapy Plan of Care Treatment Plan May Include Therapeutic Exercise Including Home Yes Exercise Program Manual Therapy Techniques Yes Neuromuscular Re-education Yes Therapeutic Activities to Return to Yes Previous Functional/Work Level Gait Training Yes ADL/Self Care Education Yes Dry Needling Yes Thermal Modalities Yes Electrical Stimulation Yes Ultrasound/Phonophoresis Yes Massage Yes Manual Lymphatic Drainage Yes Eval/Re-Eval Yes Frequency Times per week 2 Duration Number of Weeks 8 Addendums This patient is a candidate for social No or vocational rehab? Patient/Guardian verbally acknowledges Yes understanding of treatment program and consents to further treatment? Patient/Guardian verbally acknowledges Yes understanding of diagnosis, prognosis and goals for treatment? Eval Complexity PT Charges 53130 - Moderate Complexity Shoulder/Elbow Eval Shoulder Objective Measurements Elbow Objective Measurements PHYSICIAN CERTIFICATION: I certify the specified therapy services for Charlie Stephenson are required, authorized, and reviewed every 30 days.
== END 2024-07-15 23:59 | disposition home or self-care (01) ==
LOC: PT 08:56
PROVIDERS: Visit Provider Physician Assistant
DX: M70.52 Other bursitis of knee, left knee (principal)
CPT/HCPCS: 97110; 97163; 97530

== ENCOUNTER 2024-08-02 14:07 | Outpatient (CLI) | payer MEDICARE, SELFPAY ==
--- NOTE | 2024-08-02 14:16 | XR_ITS ---
FINAL REPORT CLINICAL HISTORY: right knee pain COMPARISON: 09/25/2020 FINDINGS: RIGHT KNEE Three views demonstrate no acute fracture or dislocation. The joint spaces appear normal. No acute soft tissue abnormality is seen. IMPRESSION: No acute bony abnormality. Reviewed, Interpreted and Dictated by Carlos Angel MD Transcribed by Pia Pa Authenticated and [facility]
== END 2024-08-02 23:59 | disposition home or self-care (01) ==
LOC: RAD 14:09
PROVIDERS: PCP Family Medicine; Visit Provider Physician Assistant
DX: M70.52 Other bursitis of knee, left knee (principal)
CPT/HCPCS: 73562

== ENCOUNTER 2024-12-29 13:09 | Outpatient (CLI) | payer MEDICARE, SELFPAY ==
--- OUTSIDE RECORDS SUMMARY | 2024-08-30 05:45 | XMS_ITS ---
Author Organization [facility] Address [address] [facility] [address] [place] [id number] Care Team Providers Care Cosmetics Counter Manager Name Role Phone Sonali Paris Primary Care Provider Allergies No Known Allergies Results Component Value Reference Range Notes P-Comprehensive Metabolic Pa bill (CMP) Reviewed date:09/03/2024 09:14:53 AM Interpretation:satisfactory Performing Lab: Notes/Report: Test performed by [facility], [address] , [address], [place] [address] Rob Puckett MD, Motor Analyst CLIA: [id number] Sodium 141 135-145 mmol/L Potassium 3.8 3.5-5.3 [...] W/U Status Risk Notes Problem Essential hypertension (I10) Active confirmed Vital Signs Weight 217.2 lbs 08/30/2024 Blood pressure systolic 130 mm Hg 08/30/19 25 Blood pressure diastolic 80 mm Hg 025 Heart Rate 63 /min 08/30/2024 Height 69.50 in 08/30/2024 BMI 31.61 kg/m2 08/30/2024 Encounters Encounter Location Date Provider Diagnosis [facility] [address] [facility] 36 [facility] [address] [place], [place] [id number] 08/30/2024 Sonali Paris Essential hypertensi on I10 [...] Up: 6 Months, Reason: Provider Name:Sonali Lopez er, 2025 09:30:00 AM, [address] [facility] 36 [facility], [address], [place], [place], [id number], Progress Notes * BURTON MERCADO TDOB: 2 (74 yo M)Acc No.[id number]:08/30/2024 Progress Notes Patient: BURTON CAMPOS Provider: Sonali Paris M.D. :1950 A ge:74 Y S ex:Male Date:08/30/2024 Address:[address] [place] [address] [address], [place], [id number] Subjective: * Chief Complaints: * 1 . [...] Follow-up EGD and colonoscopy, with polypectomies, Dr. Blodo 05/2018. * Hospitalization/Major Diagno stic Procedure: G I bleed [facility] 05/04-05/06/17. * Family History: F ather: 86 [...] by Creatinine 96 >59 - mL/min/1.73m2 * LeonardoDemetriaeliot Begum 09/02/2024 5:12 :35 PM > LM for pt to call Nighat Lynch 09/03/2024 9:14:38 AM > pt informed of results * Procedure Codes: G 2211 Complex e/m visit add on, 3075F SYST BP GE 130 - 139MM HG, 3079F DIAST BP 80-89 MM HG * Follow Up: 6 Months * Images: Billing Information: * Visit Code: 63722 Office Visit, Est Pt., Level 4. * Procedure Codes: G2211 Complex e/m visit add on. 3075F SYST BP GE 130 - 139MM HG. 3079F DIAST BP 80-89 MM HG. * Electronic signature of Sonali Paris MD on 12/31/2024 at 01:14 PM EDT Sign off status: Pending * Provider: Sonali Paris M.D. Date: 0 08/30/2024 Generated for Rojelioi ng/Naheed/eTransmitting on: 0 12/31/2024 01:14 PM EDT History and Physical Notes * [...]
--- OUTSIDE RECORDS SUMMARY | 2024-12-31 13:14 | XMS_ITS | Clinical Summary ---
Author Organization [facility] Address [address] [place] [address] Phone Care Team Providers Care Parking Enforcement Specialist Name Role Phone Unavailable Primary Care Provider Unavailabl e Allergies No known active allergies Medications amLODIPine (NORVASC) 2.5 mg Oral Tablet Take 2.5 mg by mouth daily. 08/23/2023 Active atorvastatin (LIPITOR) 40 mg Oral Tablet Take 40 mg by mouth daily. 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 Social History Tobacco Use Types Packs/Day Years Used Date Smoking Tobacco: Never Smokeless Tobacco: Never Tobacco Cessation:Counseling Given: Not Answered Sex and Gender Information Value Date Recorded Sex Assigned at Not on file Legal Sex Male 8:10 PM EDT Gender Identity Not on file Sexual Orientation Not on file Obstetrics History Plan of Treatment Upcoming Encounters Date Type Department Care Team (Late st Contact Info) Description 03/18/2025 3:00 PM EDT Office Visit [facility] Dermatology [facility] [address] [facility] [address] [place] [address] Jair Smith MD [address] [place] [address] Health Maintenance Due Date Last Done Comments Wellness Exam Medicare 02/27/1955 Hepatitis C Screening 02/27/1970 Cologuard 02/27/1997 Colon Cancer Screening 02/27/1997 Colonoscopy 02/27/1997 FIT 02/27/1997 Sigmoidoscopy 02/27/1997 Virtual Colonography 02/27/1997 Pneumococcal Vaccine 50+ (2 of 2 - PCV20 or PCV21) 08/11/2019 08/11/2018 COVID-19 Vaccine ( season) 2024 05/02/2024, 07/04/2023, 06/20/2022, Additional history exists DTaP/TDaP/Td (2 - Td or Tdap) 08/11/2028 08/11/2018 Zoster Completed 02/11/2023, 10/19/2022 Influenza Vaccine Completed 05/02/2024, , 05/01/2020, Additional history exists Hepatitis B Vaccine Aged Out No longe r eligible based on patient's age to complete this topic Meningococcal B Vaccine Aged Out No l onger eligible based on patient's age to complete this topic Insurance [employer] SUPPLEMENTAL MEDICARE IN PART A AND B Member Subscriber Plan / Payer (Ef fective 2017-Present) Name:Charlie Stephenson Member ID:[id number] Relation to Subscriber:Self Name:Charlie Stephenson Subscriber ID:[id number] Payer ID:Not on file Group ID:Not on file Type:Not on file Address: [address] [facility] [place] [id number] [place] [address] [address] [place] [address] SUPPLEMENTAL MEDICARE [place] PART A AND B
--- OUTSIDE RECORDS SUMMARY | 2024-12-31 13:14 | XMS_ITS | Patient Health Record ---
Author Organization [facility] Address [address] [facility] [address] [place] [id number] Care Team Providers Care Hr Administrator Name Role Phone Sonali Paris Primary Care Provider Allergies No Known Allergies Results Component Value Reference Range Notes P-Comprehensive Metabolic Pa bill (CMP) Reviewed date:09/03/2024 09:14:53 AM Interpretation:satisfactory Performing Lab: Notes/Report: Test performed by [facility] , [address], [place] [address] Rob Puckett MD, Experimental Mechanic [employer] CLIA: [id number] Sodium 141 135-145 mmol/L Potassium 3.8 3.5-5.3 [...] 0.7 <0.2-1.2 mg/dL A/G Ratio 1.4 1.1-2.5 P-Comprehensive Metabolic Pa bill (CMP) Reviewed date:02/27/2024 10:03:38 AM Interpretation:gluc 112, Cr 0.69 Performing Lab: Notes/Report: Test performed by [facility] [address] [facility] , [address], [place] [address] Rob Puckett MD, Experimental Mechanic [employer] CLIA: [id number] Sodium 139 135-145 mmol/L Potassium 3.8 3.5-5.3 mmol/L Chloride 105 97-108 mmol/L CO2 25 22-32 mmol/L Glucose 112 65-99 mg/dL BUN 18 8-23 mg/dL Creatinine 0.69 0.70-1.30 mg/dL Calcium 8.8 8.6-10.4 mg/dL eGFR by Creatinine 98 >59 mL/min/1.73m2 Protein 6.3 6.0-8.3 g/dL Albumin 3.9 3.5-5.3 g/dL Alkaline Phosphatase 79 40-129 IU/L ALT (SGPT) 12 <5-55 IU/L AST (SGOT) 17 <5-46 IU/L Bilirubin, Total 0.8 <0.2-1.2 mg/dL A/G Ratio 1.6 1.1-2.5 Medications Medication SIG (Take, Route, Frequency, Duration) Notes Start Date End Date Status amLODIPine Besylate 2.5 MG TAKE 1 TABLET EVERY DAY; Duration: 90 Active CoQ10 200 MG as directed Orally daily 10/27/2023 Active Atorvastatin Calcium 40 MG TAKE 1 TABLET EVERY OTHER DAY; Duration: 90 Active Omeprazole 40 MG TAKE 1 CAPSULE EVERY DAY; Duration: 90 Active Triamterene-HCTZ 37.5-25 MG TAKE 1/2 TAB LET ONE TIME DAILY; Duration: 90 Active Immunizations Vaccine Route Administration Date Status Comme nts xFluzone High Dose-private (65yr&older) Unknown 05/15/2018 Administered xFlu shot-36 months and older IM 04/26/2010 Administered Tetanus Tdap-Adacel (over 7yrs) IM Intramuscular 08/11/2018 Administered Shingrix Unknown 10/19/2022 Administered Prevnar (PCV13) IM Intramuscular 08/11/2018 Administered PNEUMOVAX 23 VACCINE IM Intramuscular 03/09/2016 Administe red Fluzone High Dose (65yr and older) IM Intramuscular 05/01/2019 Administered Fluzone High Dose (65yr and older) Unknown 04/27/2021 Administered Fluzone High Dose (65yr and older) IM Intramuscular 04/06/2022 Administered Fluzone High Dose (65yr and older) IM Intramuscular 04/27/2023 Administered COVID 19 Moderna Unknown 08/25/2020 Administered COVID 19 Moderna Unknown 09/22/2020 Administered COVID 19 Moderna Unknown 05/03/2021 Administered COVID 19 Moderna Unknown 10/04/2021 Administered Problems Problem Type SNOMED Code ICD Code Onset Dates Problem Status W/U Status Risk Notes Problem Hyperglycemia (03481327) Hyperglycemia (R73.9) Active confirmed Problem History of malignant melanoma of the skin (659268375675) History of melanoma (Z85.820) Active confirmed Problem Essential hypertension (46488992) Essential hypertension (I10) Active confirmed Problem Pure hypercholesterolemia (396388286) Pure hypercholesterolemia (E78.0) Active confirmed Problem Pain in right leg (297675109) Right leg pain (M79.604) Active confirmed Problem Dyslipidemia (780166218) Dyslipidemia (E78.5) Active confirmed Problem Allergic rhinitis caused by pollen (78337752) Seasonal allergic rhinitis due to pollen (J30.1) Active confirmed Problem Pure hypercholesterolemia (297876203) Pure hypercholesterolemia, unspecified (E78.00) Active confirmed Problem Benign prostatic hypertrophy without outflow obstruction (754319560) Benign prostatic hyperplasia without lower urinary tract symptoms (N40.0) Active confirmed Problem History of gastrointestinal disease (053068193) H/O gastric ulcer (Z87.19) Active confirmed Problem History of polyp of colon (931349182) H/O adenomatous polyp of colon (Z86.010) Active confirmed Vital Signs Heart Rate 63 /min 08/30/2024 Blood pressure diastolic 80 mm Hg 08/30/2024 Height 69.50 in 08/30/2024 Blood pressure systolic 130 mm Hg 08/30/2024 Weight 217.2 lbs 08/30/2024 BMI 31.61 kg/m2 08/30/2024 Encounters Encounter Location Date Provider Diagnosis [facility] [address] [place], [place] [id number] 08/30/2024 Sonali Paris Essential hypertensi on I10 ; History of melanoma Z85.820 and Benign prostatic hyperplasia without lower urinary tract symptoms N40.0 [facility] [address] [place], [place] [id number] 02/26/2024 Sonali Paris Essential hypertensi on, hypertension with unspecified goal I10 ; Benign prostatic hyperplasia without lower urinary tract symptoms N40.0 ; History of melanoma Z85.820 and Pure hypercholesterolemia, unspecified E78.00 [facility] [address] [place] [id number] 02/27/2024 Sonali Paris Assessments Encounter Date Diagnosis (ICD Code) Assessment Notes Treatment Notes Treatment Clinical Notes Section Notes 02/26/2024 Essential hypertension, hypertension with unspecified goal (ICD-10 - I10) 02/26/2024 Benign prostatic hyperplasia without lower urinary tract symptoms (ICD-10 - N40.0) 08/30/2024 History of melanoma (ICD-10 - Z85.820) 08/30/2024 Essential hypertension (ICD-10 - I10) 02/26/2024 History of melanoma (ICD-10 - Z85.820) 08/30/2024 Benign prostatic hyperplasia without lower urinary tract symptoms (ICD-10 - N40.0) 02/26/2024 Pure hypercholesterole rashad, unspecified (ICD-10 - E78.00) Plan Of Treatment Next Appt Details Provider Name:Sonali Lopez er, 2025 09:30:00 AM, [address] [facility] [address] [facility], [address], [place], [id number], Insurance Providers Payer Name Payer Address Payer Phone Subscriber Number Group Number Insured Name Patient Relationship to Insured Coverage Start Date Coverage End Date MEDICARE PART B [address] [address] [place] [address] [phone] [id number] BURTON MERCADO Self - patient is the insured [facility] C[facility] OPTIONS [address] [place] [address] [phone] [id number] BURTON MERCADO Self - patient is the insured Medical (General) History Medical History History ICD Code allergies hypertension H. pylori antibody neg 05/2017 Flu shot [facility] Shingrix - 2 Dose - 2019 - [facility] COVID 19 Vaccine 08/26/2020, Moderna COVID 19 Booster, Moderna COVID 19 Booster #2, Moderna 4/4/22 Surgical History Surgery Date(Month/Year) knee 11/04/05 colonoscopy, normal 09/17/09 malignant melanoma, RUQ 2002 EGD and colonoscopy with colon adenomato us polyps 11/28/2017 Follow-up EGD and colonoscopy, with poly pectomies, Dr. Blood 05/2018 Hospitalization History Reason Date(Month/Year) GI bleed [facility] 05/04-05/06/17
--- OUTSIDE RECORDS SUMMARY | 2024-12-31 13:14 | XMS_ITS | Referral Summary ---
Author Organization [facility] Address [address] [place] [address] Phone Care Team Providers Care Director Of Rehabilitation Name Role Phone Wellington EGAN MD, Sonali YuanPasquale Primary Care Provider + Allergies No known active allergies Medications desonide (DESOWEN) 0.05 % OINTIndications :Seborrheic dermatitis Apply to rash or itching skin on face or ears twice a day as needed 15 g 3 09/21/2016 Active hydrocortisone 2.5 % OINTIndications :Seborrheic dermatitis Apply to dry skin on face 1-2 times a day as needed 30 g 12 09/26/2018 Active Active Problems Problem Noted Date Diagnosed Date Personal history of malignant melanoma of skin 0 09/23/2015 Actinic keratoses 09/23/2015 Seborrheic dermatitis 09/23/2015 History of nonmelanoma skin cancer 09/23/2015 Resolved Problems Problem Noted Date Diagnosed Date Resolved Date Pers Hx Skin Malignancy Nec 07/22/2011 09/23/2015 PERS HX MALIG SKIN MELANOMA 05/07/2008 09/23/2015 NEVUS, MELANOCYTIC, TRUNK 04/02/2007 Actinic keratosis 08/23/2003 09/23/2015 NEVUS, DYSPLASTIC, TRUNK 08/23/2003 Social History Tobacco Use Types Packs/Day Years Used Date Smoking Tobacco: Never Smokeless Tobacco: Never Tobacco Cessation:Counseling Given: No Alcohol Use Standard Drinks/Week Comments Not Asked 0 (1 standard drink = 0.6 oz pur e alcohol) Sex and Gender Information Value Date Recorded Sex Assigned at Not on file Legal Sex Male 7:10 AM EDT Gender Identity Not on file Sexual Orientation Not on file 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 Not on file Not on file Last Filed Vital Signs Vital Sign Reading Time Taken Comments Blood Pressure 134/88 07/23/2012 7:31 AM EST Pulse 81 07/23/2012 7:31 AM EST Temperature - - Respiratory Rate - - Oxygen Saturation - - Inhaled Oxygen Concentration - - Weight 93.5 kg (206 lb 3.2 oz) 09/26/2018 8:25 A M EDT Height 177.8 cm (5' 10 ) 09/26/2018 8:25 AM EDT Body Mass Index 29.59 09/26/2018 8:25 AM EDT Plan of Treatment Not on file [facility] MEDICARE on file Care Teams Director Of Rehabilitation Relationship Specialty Start Date End Date Sonali Paris MD, [address] [place] [facility] [address] [address] PCP - General 09/12/05
--- OUTSIDE RECORDS SUMMARY | 2024-12-31 13:14 | XMS_ITS | Clinical Summary ---
Author Organization [facility] Address [address] 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 Not on file Not [...] 09/26/2018 8:25 AM EDT Plan of Treatment Health Maintenance Due Date Last Done Comments Hepatitis C Screening 1950 DTap,Tdap,and Td (1 - Tdap) 02/27/1963 Colonoscopy 02/27/1997 PSA YEARLY 02/27/2002 Pneumococcal 50+ (1 of 1 - PCV) 02/27/2002 Shingrix (#1) 02/27/2002 Influenza Vaccine (#1) 2025 RSV Vaccine (60+ or ) (1 - 1-dose 75+ series) 02/27/2027 HPV Aged Out No longer eligi ble based on patient's age to complete this topic Meningococcal conjugate irwin nt 4 (MCV4) Aged Out No longer eligible b ased on patient's age to complete this topic RSV Immunization (<20 months) Aged Out No longer eligible based on patient's age to complete this topic Insurance AAR MCR SUPPLEMENT MEDICARE on file [address] [place] [address] Care Teams Diplomatic Interpreter Relationship Specialty Start Date End Date Sonali Paris MD, [address] [facility] [address] [place] [phone] PCP - General 09/12/05
--- OUTSIDE RECORDS SUMMARY | 2024-12-31 13:14 | XMS_ITS | Clinical Summary ---
Author Organization [facility] Address [address] [place] [address] Care Team Providers Care Avid Editor Name Role Phone Unavailable Primary Care Provider Unavailabl e Social History Tobacco Use Types Packs/Day Years Used Date Smoking Tobacco: Never Assessed Sex and Gender Information Value Date Recorded Sex Assigned at Not on file Legal Sex Male 12:11 PM EST Gender Identity Not on file Sexual Orientation Not on file Plan of Treatment Health Maintenance Due Date Last Done Comments [facility]-Depression Screening 1950 [facility]-Infant/Child/Adol SDOH Screenings 1950 [facility]- SDOH Screenings 02/27/1970 [facility]-Adult SDOH Screenings 02/27/1970 CT Colonography 02/27/1997 Colonoscopy 02/27/1997 FIT-DNA 02/27/1997 FIT 02/27/1997 FOBT 02/27/1997 Sigmoidoscopy 02/27/1997 [facility]-Colorectal Cancer Screening 02/27/1997 [facility]-Zoster Vaccines (1 of 2) 02/27/2002 [facility]-Pneumococcal Vaccine: 50+ Years (2 of 2 - PPSV23) 08/11/2019 08/11/2018 [id number] Vaccine ( season) 2024 10/04/2021, 05/03/2021, 09/22/2020, Additional history exists [facility]-Influenza Vaccine (Season Ended) 2025 04/27/2021, 05/01/2020 [facility]-RSV Vaccine: 60+ Years or (1 - 1-dose 75+ series) 02/27/2027 [facility]-DTaP,Tdap,and Td Vaccines (2 - Td or Tdap) 08/11/2028 08/11/2018 HPV Vaccines Aged Out No longer eligi ble based on patient's age to complete this topic [facility]-HIB Vaccines Aged Out No longer e ligible based on patient's age to complete this topic [facility]-Hepatitis A Vaccines Aged Out No longer eligible based on patient's age to complete this topic [facility]-IPV Vaccines Aged Out No longer e ligible based on patient's age to complete this topic [facility]-Rotavirus Vaccines Aged Out No lo nger eligible based on patient's age to complete this topic Insurance MEDICARE [facility]
== END 2024-12-29 23:59 | disposition home or self-care (01) ==
LOC: LAB.DROPOF 12-31 13:11
PROVIDERS: PCP Family Medicine; Visit Provider Student in an Organized Health Care Education/Training Program
DX: R52 Pain, unspecified (principal)
CPT/HCPCS: 87635

== ENCOUNTER 2025-01-05 11:14 | Emergency (ER) | payer MEDICARE, SELFPAY ==
--- OUTSIDE RECORDS SUMMARY | 2024-08-30 05:45 | XMS_ITS ---
Author Organization [facility] Address [address] [facility] [address] [place] [id number] Care Team Providers Care Director Dermatology Name Role Phone Sonali Paris Primary Care Provider Allergies No Known Allergies Results Component Value Reference Range Notes P-Comprehensive Metabolic Pa bill (CMP) Reviewed date:09/03/2024 09:14:53 AM Interpretation:satisfactory Performing Lab: Notes/Report: Test performed by [facility], [address] , [address], [place] [address] Rob Puckett MD, Remote Sensing Research Scientist CLIA: [id number] Sodium 141 135-145 mmol/L Potassium 3.8 3.5-5.3 [...] Encounter Location Date Provider Diagnosis [facility] [address] [facility] 36 [facility] [address] [place], [place] [id number] 08/30/2024 Sonali Paris Essential hypertensi on I10 [...] Name:Sonali Lopez er, 2025 09:30:00 AM, [address] [facility] 36 [facility], [address], [place], [place], [phone], Progress Notes * BURTON MERCADO TDOB: 2 (74 yo M)Acc No.[id number]:08/30/2024 Progress Notes Patient: BURTON CAMPOS Provider: Sonali Paris M.D. :1950 A ge:74 Y S ex:Male Date:08/30/2024 Address:[address] [place] [address] [address], [place], [id number] Subjective: * Chief Complaints: * 1 . [...] Hospitalization/Major Diagno stic Procedure: G I bleed [facility] 05/04-05/06/17. * Family History: F ather: [...] by Creatinine 96 >59 - mL/min/1.73m2 * ShannonCriss Shy 09/02/2024 5:12 :35 PM > LM for pt to call Nighat Lynch 09/03/2024 9:14:38 AM > pt informed of results * Procedure Codes: G 2211 Complex e/m visit add on, 3075F SYST BP GE 130 - 139MM HG, 3079F DIAST BP 80-89 MM HG * Follow Up: 6 Months * Images: Billing Information: * Visit Code: 88344 Office Visit, Est Pt., Level 4. * Procedure Codes: G2211 Complex e/m visit add on. 3075F SYST BP GE 130 - 139MM HG. 3079F DIAST BP 80-89 MM HG. * Electronic signature of Sonali Paris MD on 01/05/2025 at 11:31 AM EDT Sign off status: Pending * Provider: Sonali Paris M.D. Date: 0 08/30/2024 Generated for Rojelioi ng/Naheed/eTransmitting on: 0 01/05/2025 11:31 AM EDT History and Physical Notes * [...]
[2025-01-05 11:21] VITALS: BP 150/96; PULSE 70; O2SAT 95
[2025-01-05 11:23] VITALS: BP 150/96; PULSE 73; RESP 18; TEMP 36.6; O2SAT 95
[2025-01-05 11:24] LABS: Microscopic, Urine URINE MICROSCOPIC (MICROSCOPIC)
[2025-01-05 11:25] VITALS: RESP 18; TEMP 36.6; O2SAT 95; BMI 28.7
[2025-01-05 11:29] LABS: Color,Urine YELLOW (Yellow); Glucose,Urine (UA) Negative (Negative); Ketones,Urine Negative (Negative); Leukocyte Esterase,Urine Negative (Negative); PH,Urine 8.0 (5.0-8.5); Protein,Urine Negative (Negative); Specific Gravity, Urine 1.010 (1.005-1.030); Urobilinogen,Urine 1.0 EU/dl (0.2)
--- OUTSIDE RECORDS SUMMARY | 2025-01-05 11:32 | XMS_ITS | Clinical Summary ---
Author Organization [facility] Address [address] 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
--- OUTSIDE RECORDS SUMMARY | 2025-01-05 11:32 | XMS_ITS | Clinical Summary ---
Author Organization [facility] Address [address] [place] [address] Phone Care Team Providers Care Supervisor Mapping Name Role Phone Unavailable Primary Care Provider [...] Description 03/18/2025 3:00 PM EDT Office Visit [facility] Dermatology [facility] [address] [facility] [address] [place] [address] Jair Smith MD [address] [place] [address] Health Maintenance Due Date Last Done Comments Wellness Exam Medicare 02/27/1953 Hepatitis C Screening 02/27/1970 Cologuard 02/27/1997 Colon Cancer Screening 02/27/1997 Colonoscopy 02/27/1997 FIT 02/27/1997 Sigmoidoscopy 02/27/1997 Virtual Colonography 02/27/1997 Pneumococcal Vaccine 50+ (2 of 2 - PCV20 or PCV21) 08/11/2019 08/11/2018 COVID-19 Vaccine ( season) 2024 05/02/2024, 07/04/2023, 06/20/2022, Additional history exists Influenza Vaccine (#1) 2025 , 04/27/2021, 05/01/2020, Additional history exists DTaP/TDaP/Td (2 - Td or Tdap) 08/11/2028 08/11/2018 Zoster Completed 02/11/2023, 10/19/2022 Hepatitis B Vaccine Aged Out No longe r eligible based on patient's age to complete this topic Meningococcal B Vaccine Aged Out No l onger eligible based on patient's age to complete this topic Insurance 1962 [facility] [id number] SUPPLEMENTAL MEDICARE IN PART A AND B MEDICARE [place] PART [place] [address] [place] [address] SUPPLEMENTAL MEDICARE [place] PART A AND B
--- OUTSIDE RECORDS SUMMARY | 2025-01-05 11:32 | XMS_ITS | Referral Summary ---
Author Organization [facility] Address [address] 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 [address] [address] PCP - General 09/12/05
--- OUTSIDE RECORDS SUMMARY | 2025-01-05 11:32 | XMS_ITS | Patient Health Record ---
Author Organization [facility] Address [address] [facility] [address] [place] [id number] Care Team Providers Care Dietary Tech Name Role Phone Sonali Paris Primary Care Provider [phone] Allergies No Known Allergies Results Component Value Reference Range Notes P-Comprehensive Metabolic Pa bill (CMP) Reviewed date:02/27/2024 10:03:38 AM Interpretation:gluc 112, Cr 0.69 Performing Lab: Notes/Report: Test performed by [facility] [address] [place] [address] , [address], [place] [address] Rbo Puckett MD, Ethylene Compressor Operator CLIA: [id number] Sodium 139 135-145 mmol/L Potassium 3.8 3.5-5.3 [...] 0.8 <0.2-1.2 mg/dL A/G Ratio 1.6 1.1-2.5 P-Comprehensive Metabolic Pa bill (CMP) Reviewed date:09/03/2024 09:14:53 AM Interpretation:satisfactory Performing Lab: Notes/Report: Test performed by [facility] [address] [facility] , [address], [place] [address] Rob Puckett MD, Ethylene Compressor Operator CLIA: [id number] Sodium 141 135-145 mmol/L Potassium 3.8 3.5-5.3 [...] 0.7 <0.2-1.2 mg/dL A/G Ratio 1.4 1.1-2.5 Medications Medication SIG (Take, Route, Frequency, [...] Status W/U Status Risk Notes Problem Hyperglycemia (03682756) Hyperglycemia (R73.9) Active confirmed Problem History of malignant melanoma of the skin (582303977143) History of melanoma (Z85.820) Active confirmed Problem Essential hypertension (28983036) Essential hypertension (I10) Active confirmed Problem Pure hypercholesterolemia (184377352) Pure hypercholesterolemia (E78.0) Active confirmed Problem Pain in right leg (157673344) Right leg pain (M79.604) Active confirmed Problem Dyslipidemia (315188701) Dyslipidemia (E78.5) Active confirmed Problem Allergic rhinitis caused by pollen (63032062) Seasonal allergic rhinitis due to pollen (J30.1) Active confirmed Problem Pure hypercholesterolemia (493496973) Pure hypercholesterolemia, unspecified (E78.00) Active confirmed Problem Benign prostatic hypertrophy without outflow obstruction (420624809) Benign prostatic hyperplasia without lower urinary tract symptoms (N40.0) Active confirmed Problem History of gastrointestinal disease (514257488) H/O gastric ulcer (Z87.19) Active confirmed Problem History of polyp of colon (319698185) H/O adenomatous polyp of colon (Z86.010) Active confirmed Vital Signs Heart Rate 63 /min 08/30/2024 Blood pressure diastolic 80 mm Hg 08/30/2024 Height 69.50 in 08/30/2024 Blood pressure systolic 130 mm Hg 08/30/2024 Weight 217.2 lbs 08/30/2024 BMI 31.61 kg/m2 08/30/2024 Encounters Encounter Location Date Provider Diagnosis [facility] [address] [place], [place] [id number] 08/30/2024 Sonali Paris Essential hypertensi on I10 ; History of melanoma Z85.820 and Benign prostatic hyperplasia without lower urinary tract symptoms N40.0 [facility] [address] [place], [place] [id number] 02/26/2024 Sonali Paris Essential hypertensi on, hypertension with unspecified goal I10 ; Benign prostatic hyperplasia without lower urinary tract symptoms N40.0 ; History of melanoma Z85.820 and Pure hypercholesterolemia, unspecified E78.00 [facility] [address] [place] [id number] 02/27/2024 Sonali Paris Assessments Encounter Date Diagnosis (ICD Code) Assessment Notes Treatment Notes Treatment Clinical Notes Section Notes 08/30/2024 History of melanoma (ICD-10 - Z85.820) 08/30/2024 Essential hypertension (ICD-10 - I10) 02/26/2024 Essential hypertension, hypertension with unspecified goal (ICD-10 - I10) 02/26/2024 Benign prostatic hyperplasia without lower urinary tract symptoms (ICD-10 - N40.0) 08/30/2024 Benign prostatic hyperplasia without lower urinary tract symptoms (ICD-10 - N40.0) 02/26/2024 History of melanoma (ICD-10 - Z85.820) 02/26/2024 Pure hypercholesterole rashad, unspecified (ICD-10 - E78.00) Plan Of Treatment Next Appt Details Provider Name:Sonali Lpoez er, 2025 09:30:00 AM, [address] [facility] [address] [facility], [address], [place], [id number], Insurance Providers Payer Name Payer Address Payer Phone Subscriber Number Group Number Insured Name Patient Relationship to Insured Coverage Start Date Coverage End Date MEDICARE PART B [address] [address] [place] [address] [phone] [id number] BURTON MERCADO Self - patient is the insured [facility] CARE OPTIONS [address] [place] [id number] BURTON MERCADO Self - patient is the [...] 05/2018 Hospitalization History Reason Date(Month/Year) GI bleed [facility] 05/04-05/06/17
--- OUTSIDE RECORDS SUMMARY | 2025-01-05 11:32 | XMS_ITS | Clinical Summary ---
Author Organization [facility] Address [address] [place] [address] Care Team Providers Care Roll Form Operator Name Role Phone Unavailable Primary Care Provider [...] (2 of 2 - PPSV23) 08/11/2019 08/11/2018 [id number] Vaccine ( season) 2024 10/04/2021, 05/03/2021, 09/22/2020, Additional history exists [facility]-Influenza Vaccine (#1) 2025 04/27/2021, [facility]-RSV Vaccine: 60+ Years or (1 - [...] age to complete this topic Insurance MEDICARE [facility]
--- NOTE | 2025-01-05 11:36 | PC.NURSE ---
Received report from [facility] Moise
--- NOTE | 2025-01-05 11:39 | CT_ITS ---
PROCEDURE INFORMATION: Exam: CT Abdomen And Pelvis With Contrast Exam date and time: 01/05/2025 12:37 PM Age: 74 years old Clinical indication: Other: Epigastric/upper abd pain/n/v/chano TECHNIQUE: Imaging protocol: Computed tomography of the abdomen and pelvis with contrast. Radiation optimization: All CT scans at this facility use at least one of these dose optimization techniques: automated exposure control; mA and/or kV adjustment per patient size (includes targeted exams where dose is matched to clinical indication); or iterative reconstruction. Contrast material: ISOVUE; Contrast volume: 75 ml; Contrast route: IV; COMPARISON: CR XR HIP RT 2-3V W/PELVIS 09/25/2020 10:08 AM FINDINGS: Lungs: Nodule measuring 2 mm is seen in the right anterior lung base. Patchy opacities in both lung bases worse on the left likely represent atelectasis or infection. Liver: Normal. No mass. Gallbladder and biliary ducts: Normal. No calcified stones. No ductal dilation. Pancreas: Normal. No ductal dilation. Spleen: Normal. No splenomegaly. Adrenal glands: Normal. No mass. Kidneys and ureters: Normal. No hydronephrosis. Stomach and bowel: Unremarkable. No obstruction. No mucosal thickening. Appendix: The appendix is not visualized. Intraperitoneal space: No evidence of free air in the abdomen. Vasculature: Unremarkable. No abdominal aortic aneurysm. Lymph nodes: Unremarkable. No enlarged lymph nodes. Urinary bladder: The urinary bladder is underdistended. Reproductive: Bilateral small hydroceles. Bones/joints: Unremarkable. No acute fracture. Soft tissues: Unremarkable. IMPRESSION: 1. No acute findings to explain patient's symptoms. 2. Patchy opacities in both lung bases worse on the left likely represent atelectasis or infection. 3. Nodule measuring 2 mm in the right anterior lung base. For patients at low risk (minimal or absent history of smoking and of other known risk factors), no routine follow-up is indicated. For patients at high risk (history of smoking or of other known risk factors), consider optional CT Chest at 12 months. (Reference: Vanessa) REFERENCES: Vanessa Alba et al. Guidelines for Management of Incidental Pulmonary Nodules Detected on CT Images: From the Fleischner Society 2017. Radiology. 2017;284(1):228-243.
--- NOTE | 2025-01-05 11:40 | HMH.EDGENADL ---
Discharge Plan Disposition Patient Disposition: Home, Self-Care Condition: Good Prescriptions Prescriptions: New amoxicillin-pot clavulanate 875-125 mg tablet 1 tab PO BID Qty: 20 0RF ondansetron 4 mg tablet,disintegrating 4 mg PO Q8H PRN (Reason: nausea and vomiting) 4 Days Qty: 12 0RF azithromycin 500 mg tablet 500 mg PO DAILY 4 Days Qty: 4 0RF No Action triamterene-hydrochlorothiazid 37.5-25 mg capsule 1 cap PO QAM Clenpiq 10 mg-3.5 gram- 12 gram/175 mL solution 175 ml PO DAILY Qty: 350 0RF Rx Instructions: take first dose at 5-9PM evening before colonoscopy; 2nd dose the next day approximately 5 hrs before colonoscopy atorvastatin 40 MG tablet 40 mg PO HS omeprazole 40 MG capsule,delayed release(DR/EC) 40 mg PO DAILY diclofenac sodium 100 GM gel 1 g topical BID PRN (Reason: Moderate Pain) Qty: 100 0RF Rx Instructions: apply to knee twice daily for pain Referrals Follow up/Referrals: Miranda Paris MD [Primary Care Provider, Medical] - See instructions Activity Restrictions/Add. Instructions Additional Instructions/Restrictions: You were evaluated in the emergency department today. At this time, as we discussed, it looks like you have pneumonia. For this, I am prescribing you 2 antibiotics. For the nausea and vomiting, I prescribed you Zofran to have as needed. Make sure you stay hydrated and eat bland foods. You do have a lung nodule in your right lung for which I recommend close follow-up on an outpatient basis with your primary care provider. Please make sure you stay hydrated. Return to the emergency department right away for new or worsening symptoms. Follow-up closely with your primary care provider over the next week for reassessment. Clinical Impressions Clinical Impression: Nausea, vomiting and diarrhea, Transaminitis, Pneumonia, Lung nodule Stand Alone Forms Stand Alone Forms: Work/School Release Instructions Patient Instructions: DI for Pneumonia -- Adult, DI for Diarrhea and Traveler's Diarrhea -- Adult, DI for Nausea -- Adult Print Language Print Language: Norwegian Discharge ED Provider: Claudia Snyder General Adult HPI General Chief complaint: Nausea/Vomiting/Diarrhea Stated complaint: nausea, diarrhea, vomiting Time Seen by Provider: 01/05/25 11:17 Mode of Arrival: Ambulatory Source of Information: Patient Description of Symptoms (Recalled from ER Triage Doc. by RN): pt c/o N/V/D, chills, and sweating x1wk. pt denies abd pain, chest pain, or SOA. History of Present Illness HPI narrative: This patient is a 74-year-old male who has a history of hypertension and hyperlipidemia presenting to the emergency department for evaluation with concern for upper abdominal pain, nausea, vomiting, and diarrhea for 1 week. He notes that he has not had an appetite or been able to eat or drink very much. Nothing seems to make his symptoms better or worse. He does note he is feeling very better overall. Emesis is nonbloody and nonbilious, diarrhea is nonbloody and nonmelanotic. Related Data Home Medications ?Medication ?Instructions ?Recorded ?Confirmed triamterene 37.5 1 cap PO QAM Hypertension 10/24/17 01/05/25 mg-hydrochlorothiazide 25 mg capsule atorvastatin 40 mg tablet 40 mg PO HS Cholesterol 08/30/20 01/05/25 omeprazole 40 mg capsule,delayed 40 mg PO DAILY GERD 05/14/21 01/05/25 release Previous Rx's ?Medication ?Instructions ?Recorded diclofenac sodium 3 % topical gel 1 g topical BID PRN Moderate Pain 05/14/21 #100 grams sod picosulf 10 mg-magnes 3.5 175 ml PO DAILY 2 doses #350 mL 03/26/24 gram-citric 12 gram/175 mL oral solution (Clenpiq) amoxicillin 875 mg-potassium 1 tab PO BID #20 tabs 01/05/25 clavulanate 125 mg tablet azithromycin 500 mg tablet 500 mg PO DAILY 4 days #4 tabs 01/05/25 ondansetron 4 mg disintegrating 4 mg PO Q8H PRN nausea and 01/05/25 tablet vomiting 4 days #12 tabs Allergies Allergy/AdvReac Type Severity Reaction Status Date / Time No Known Allergies Allergy Verified 01/05/25 11:27 [facility] Disclaimer: The information contained in this section may have been updated after the patient was seen, as this information can be updated by other users. Social History Smoking Status: Never smoker alcohol intake: never counseling provided: provider counseling substance use type: denies use current occupational status: other Travel in the last 8 weeks?: None caffeine: No Have you lived/traveled outside US in past 30 days?: No Contact w/someone who lives/traveled outside US past 30 days?: No Exposure to someone with infectious disease in past 14 days?: No Do you have a fever (greater than 100.4 F or 38 C)?: No Have you tested positive for COVID-19?: No Exposed to someone with COVID-19 in past 14 days?: No Do you have a sore throat?: No Do you have a cough?: No Do you have any weakness?: No Do you have any diarrhea?: No Are you experiencing any unusual bleeding?: No Do you have any muscle aches/pain?: No Do you have any abdominal pain?: No Are you experiencing loss of taste or smell?: No Other Medical History Have you received the Flu Vaccine for this season: No Have you received the Pneumonia Vaccine: Yes ROS Obtained: Yes All systems reviewed & no additional complaints except as documented Physical Exam General General appearance: alert and in no apparent distress Head Head exam: atraumatic and normocephalic Eye Eye exam: Present normal appearance, PERRL and EOMI ENT ENT exam: Present normal exam, normal oropharynx, mucous membranes moist and normal external ear exam Neck Neck exam: Present normal inspection, full ROM and trachea midline; Absent tenderness Chest Chest inspection: Present normal inspection and symmetric chest wall rise; Absent tenderness Respiratory Respiratory exam: Present normal lung sounds bilaterally; Absent respiratory distress, wheezes, stridor or accessory muscle use Cardiovascular Cardiovascular exam: Present regular rate and normal rhythm Abdominal Exam Abdominal exam: Present soft; Absent distention, tenderness or guarding Extremities Exam Extremities exam: Present normal inspection, full ROM and normal capillary refill; Absent tenderness or edema Back Exam Back exam: Present normal inspection and full ROM; Absent tenderness Neurological Exam Neurological exam: Present alert, oriented X3, CN II-XII intact and normal gait; Absent motor sensory deficit Psychiatric Psychiatric exam: Present normal affect and normal mood Skin Skin exam: Present warm and dry Medical Decision Making Medical Records Medical records reviewed: Yes I reviewed the patient's medical records. Screening: Per USPSTF and CDC recommendations, given the prevalence of disease in our region, it is our hospital?s policy to screen for HIV and viral Hepatitis for all patients aged 18 and over and those with ongoing risk factors. Isaias Inquiry Pt receiving controlled substance: No Vital Signs: 01/05/25 11:21 01/05/25 11:23 01/05/25 11:25 Temperature 97.9 F 97.9 F Temperature Source Oral Oral Pulse Rate 70 73 Respiratory Rate 18 18 Blood Pressure 150/96 H 150/96 H Blood Pressure Source Automatic Cuff Blood Pressure Position Sitting 02 Sat by Pulse Oximetry 95 95 95 Oxygen Delivery Method Room Air 01/05/25 14:24 Temperature 98 F Temperature Source Oral Pulse Rate 70 Respiratory Rate 15 Blood Pressure 160/94 H Blood Pressure Source Automatic Cuff Blood Pressure Position Supine 02 Sat by Pulse Oximetry Oxygen Delivery Method Room Air Lab Data Lab results reviewed: Yes I reviewed the patient's lab results. Lab Results 01/05/25 11:18: Urine Color Yellow, Urine Appearance Clear, Urine pH 8.0, Ur Specific [place] 1.010, Urine Protein Negative, Urine Glucose (UA) Negative, Urine Ketones Negative, Urine Blood Trace-i, Urine Nitrate Negative, Urine Bilirubin Negative, Urine Urobilinogen 1.0, Ur Leukocyte Esterase Negative, Urine RBC None, Urine WBC 3-5, Ur Squamous Epith Cells 3-5, Urine Bacteria Trace 01/05/25 11:51: SARS-CoV-2 (PCR) Not detected, Influenza A Untype (PCR) Not detected, Influenza Type B (PCR) Not detected 01/05/25 11:52: WBC 8.4, RBC 5.47, Hgb 15.4, Hct 47.8, MCV 87.4, MCH 28.2, MCHC 32.2, RDW 12.4, Plt Count 330, MPV 10.7 H, Neut % (Auto) 71.8, Lymph % (Auto) 15.6, Hooker % (Auto) 9.4 H, Eos % (Auto) 2.4, Baso % (Auto) 0.2, Neut # (Auto) 6.0, Lymph # (Auto) 1.3, [place] # (Auto) 0.8, Eos # (Auto) 0.2, Baso # (Auto) 0.0, PT 11.7, INR 1.06, Sodium 134 L, Potassium 3.7, Chloride 97 L, Carbon Dioxide 29, Anion Gap 11.7, BUN 22 H, Creatinine 0.90, Estimated Creat Clear 86, Estimated GFR 83, Est GFR ( Amer) 100, Glucose 125 H, Calcium 9.1, Magnesium 2.4 H, Total Bilirubin 0.8, AST 132 H, ALT 173 H, Alkaline Phosphatase 187 H, Troponin I < 0.01, Total Protein 7.5, Albumin 3.7, Globulin 3.8 H, Albumin/Globulin Ratio 1.0 L, Lipase 37 01/05/25 11:52 01/05/25 11:52 Orders (Tests/Meds): ED MEDICATIONS Discontinued Medications Generic Name Dose Route Start Last Admin Trade Name Jonna PRN Reason Stop Dose Admin Acetaminophen 1,000 mg 01/05/25 11:39 01/05/25 11:56 Acetaminophen 1,000mg/100ml Vial IV 01/05/25 11:40 1,000 mg ONCE ONE Administration Amoxicillin/Clavulanate Potassium 1 each 01/05/25 13:45 01/05/25 13:57 Amoxicillin/Clavulanate Potassium 875/125mg Tablet PO 01/05/25 13:46 1 each ONCE ONE Administration Azithromycin 500 mg 01/05/25 13:45 01/05/25 13:58 Azithromycin 250mg Tablet PO 01/05/25 13:46 500 mg ONCE ONE Administration Famotidine 20 mg 01/05/25 11:39 01/05/25 11:56 Famotidine 20mg/2ml Vial IV 01/05/25 11:40 20 mg ONCE ONE Administration Lactated Ringer's 1,000 mls @ 999 mls/hr 01/05/25 11:39 01/05/25 11:57 Lactated Ringer's 1000 Ml Bag IV 01/05/25 12:39 999 mls/hr .Q1H1M ONE Administration Iopamidol 75 ml 01/05/25 12:36 01/05/25 12:37 Iopamidol-370 (76%);100ml Bottle IV 01/05/25 12:37 75 ml ONCE ONE Administration Ondansetron HCl 4 mg 01/05/25 11:39 01/05/25 11:57 Ondansetron 4mg/2ml Vial IV 01/05/25 11:40 4 mg ONCE ONE Administration Sodium Chloride 8 ml 01/05/25 11:39 Sodium Chloride 0.9% 10ml Vial IV 02/04/25 11:38 NEEDED PRN dilute pepcid Sodium Chloride 10 ml 01/05/25 12:36 01/05/25 12:37 Sodium Chloride 0.9% 10ml Syr (Rad Only) IV 01/05/25 12:37 10 ml ONCE ONE Administration ORDERS Category Date Time Status CT abdomen pelvis w con Stat Cat Scan 01/05/25 11:39 Completed Complete Blood Count Auto Diff Stat Lab 01/05/25 11:52 Completed Comprehensive Metabolic Panel Stat Lab 01/05/25 11:52 Completed INR [Prothrombin Time INR] Stat Lab 01/05/25 11:52 Completed Lipase Stat Lab 01/05/25 11:52 Completed MAG [Magnesium] Stat Lab 01/05/25 11:52 Completed Rapid PCR Covid and Flu A/B Stat Lab 01/05/25 11:51 Completed Trop I [Troponin I] Stat Lab 01/05/25 11:52 Completed UA [Urinalysis and Microscopic] Stat Lab 01/05/25 11:18 Completed ECG Data Tracing #1: I reviewed this ECG and interpreted as documented below: Normal sinus rhythm with a ventricular of [address] changes concerning for ischemia. Normal intervals ECG initial impression date: 01/05/25 ECG initial impression time: 11:51 Medical Decision Narrative: In summary, this patient is a 74-year-old presenting to the Emergency Department for evaluation of gastric/upper abdominal pain, nausea, vomiting, and diarrhea for 1 week. Differential diagnoses considered include but are not limited to pancreatitis, cholecystitis, gastroenteritis, dehydration, KWAME, pyelonephritis. Ruling out the most morbid conditions drove assessment. It should be noted patient's history includes hypertension and hyperlipidemia which may or may not be at goal therapy. This complicates all aspects of care by increasing patient's risk for morbidity. I reviewed patient's past medical records and noted prior PCP evaluation 12/29/2024 for abdominal pain, nausea, vomiting, and diarrhea with no known sick contacts. At that time, he was given instructions for supportive care and presentation to the ED if he gets worse. On exam, the patient is sitting upright in no acute distress. He is afebrile nontoxic-appearing with reassuring vitals on cardiac telemetry. Abdominal exam is relatively benign with only mild epigastric tenderness, no rebound, guarding, or rigidity. Workup included CBC, CMP, lipase, magnesium, troponin, INR, urinalysis, diarrhea panel, viral swab, EKG, and CT abdomen pelvis with IV contrast. He was given a bolus of IV fluids as well as IV acetaminophen, Pepcid, and Zofran for symptomatic improvement. I independently interpreted CT scan prior to the radiologist read and noted bibasilar infiltrates concerning for pneumonia. Please see their read for final interpretation. He does not have any obvious inflammatory or infectious process within his abdomen. Labs were obtained that demonstrated reassuring CBC with no significant leukocytosis or anemia. Labs demonstrate mild hyponatremia, mild hypochloremia, mildly elevated BUN, mild hypomagnesemia in the setting of nausea and vomiting. I feel this is likely volume contraction. He has transaminitis with liver enzymes in the 100s. Bilirubin is normal, lipase is normal. Urinalysis is nonconcerning for infection. On reassessment, patient had great improvement after administration of interventions above. He no other has nausea vomiting or diarrhea and is able to tolerate oral intake. We unfortunately did not get a stool specimen here. I discussed with him the findings on CT scan concerning for pneumonia, and he states he has been coughing a lot. I do feel this fits the clinical picture so we will treat with Augmentin and azithromycin. He is on room air with no increased work of breathing, so I do not feel that admission is required. He also does not meet sepsis criteria. Will also prescribe him Zofran to have on an outpatient basis for the nausea and vomiting. He was able to tolerate oral intake prior to discharge so is felt he is appropriate for discharge home with close PCP follow-up and strict return precautions. He was discharged after all questions were answered. Critical Care Critical Care Time Critical Care Time: No
--- NOTE | 2025-01-05 11:49 | ECG_ITS ---
APPROVED REPORT Exam: Resting ECG HR:60 bpm ECG Measurements Heart Rate 60 AXES FL 199 P 55 QRSd 110 QRS 58 QT 417 T 48 QTc 417 Conclusion SINUS RHYTHM NORMAL ECG No acute ST changes concerning for ischemia Electronically signed by : MEGAN OBANDO, 01/05/2025 13:02:11
--- NOTE | 2025-01-05 11:53 | PC.NURSE ---
Contacted Medical Scribe r/t US guided IV insertion.
[2025-01-05] MEDS: FAMOTIDINE 20MG/2ML VIAL 20 MG IV (11:56)
[2025-01-05] MEDS: ACETAMINOPHEN 1,000MG/100ML VIAL 1000 MG IV (11:56)
[2025-01-05] MEDS: ONDANSETRON 4MG/2ML VIAL 4 MG IV (11:57)
[2025-01-05] MEDS: LACTATED RINGERS 1000ML 1,000 ML 999 ML IV (11:57)
[2025-01-05 12:04] LABS: Coronavirus 19, PCR Not Detected (NotDetected); Influenza A, PCR Not Detected (NotDetected); Influenza B, PCR Not Detected (NotDetected)
[2025-01-05 12:08] LABS: Hematocrit 47.8 % (42.0-52.0); Hemoglobin 15.4 g/dL (14.1-18.0); Immature Granulocytes % 0.6 %; Mean Corpuscular HGB Conc 32.2 g/dL (31.8-35.4); Mean Corpuscular Hemoglobin 28.2 pg (27.0-31.2); Mean Corpuscular Volume 87.4 fl (80-94); Nucleated Red Blood Cells % 0 %; Platelet Count 330 K/mm3 (142-424); Red Blood Count 5.47 M/mm3 (4.60-6.20); Red Cell Distribution Width-SD 39.8 fL; White Blood Count 8.4 K/mm3 (4.8-10.8)
[2025-01-05 12:21] LABS: INR 1.06 (0.9-1.1); Prothrombin Time 11.7 seconds (10.1-12.5)
[2025-01-05 12:23] LABS: Magnesium 2.4 mg/dl (1.6-2.3)
[2025-01-05 12:24] LABS: Alanine Aminotransferase 173 U/L (12-78); Albumin Level 3.7 g/dl (3.5-5.0); Albumin/Globulin Ratio 1.0 (1.1-1.8); Alkaline Phosphatase 187 U/L (38-126); Anion Gap 11.7 mEq/L (5-15); Aspartate Amino Transferase 132 U/L (17-59); Bilirubin,Total 0.8 mg/dl (0.2-1.3); Blood Urea Nitrogen 22 mg/dl (9-20); Calcium 9.1 mg/dl (8.4-10.2); Carbon Dioxide 29 mmol/L (22.0-30.0); Chloride 97 mmol/L (98-107); Creatinine Clearance Estimated 86 mL/min (50-200); Creatinine,Serum 0.90 mg/dl (0.66-1.25); Estimated Glomerular Filt Rate 83 ml/min (>60); GFR (African American) 100 ML/MIN (>60); Globulin 3.8 g/dL (1.3-3.2); Glucose 125 mg/dl (74-100); Lipase 37 U/L (23-300); Potassium 3.7 mmoL/L (3.5-5.1); Sodium 134 mmol/L (136-145); Total Protein,Serum 7.5 g/dl (6.3-8.2)
[2025-01-05 12:24] LABS: Bilirubin,Urine Negative (Negative)
[2025-01-05 12:31] LABS: Bacteria,Urine Trace /lpf
[2025-01-05] MEDS: IOPAMIDOL-370 (76%);100ML BOTTLE 75 ML IV (12:37)
[2025-01-05] MEDS: SODIUM CHLORIDE 0.9% 10ML SYR (RAD ONLY) 10 ML IV (12:37)
[2025-01-05 12:51] LABS: Troponin I < 0.01 ng/ml (0.00-0.034)
--- NOTE | 2025-01-05 13:45 | PC.NURSE ---
PO challenge started per provider.
--- NOTE | 2025-01-05 13:47 | PC.NURSE ---
rounded on patient, no needs voiced at this time.
[2025-01-05] MEDS: AMOXICILLIN/CLAVULANATE POTASSIUM 875/125MG TABLET 1 EACH PO (13:57)
[2025-01-05] MEDS: AZITHROMYCIN 250MG TABLET 500 MG PO (13:58)
--- NOTE | 2025-01-05 14:06 | PC.NURSE ---
PO challenge completed. PT stated he doesnt feel nauseated from nourishment.
[2025-01-05 14:24] VITALS: BP 160/94; PULSE 70; RESP 15; TEMP 36.6; O2SAT 96
== END 2025-01-05 14:33 | disposition home or self-care (01) ==
PROVIDERS: Emergency Provider Emergency Medicine; PCP Family Medicine
DX: R91.1 Solitary pulmonary nodule (principal); J18.9 Pneumonia, unspecified organism; R74.01 Elevation of levels of liver transaminase levels
CPT/HCPCS: 74177; 80053; 81001; 83690; 83735; 84484; 85025; 85610; 87636; 93005; 96361; 96365; 96375; 99285; J0131; J2405; J7120; Q9967

== ENCOUNTER 2025-01-10 11:30 | Outpatient (CLI) | payer MEDICARE, SELFPAY ==
--- OUTSIDE RECORDS SUMMARY | 2024-08-30 05:45 | XMS_ITS ---
Author Organization [facility] Address [address] [facility] [address] [place] [id number] Care Team Providers Care Floor Inspector Name Role Phone Sonali Paris Primary Care Provider Allergies No Known Allergies Results Component Value Reference Range Notes P-Comprehensive Metabolic Pa bill (CMP) Reviewed date:09/03/2024 09:14:53 AM Interpretation:satisfactory Performing Lab: Notes/Report: Test performed by [facility], [address] , [address], [place] [address] Rob Puckett MD, Electronic Train Control Technician CLIA: [id number] Sodium 141 135-145 mmol/L Potassium 3.8 3.5-5.3 [...] W/U Status Risk Notes Problem Essential hypertension (76238765) Essential hypertension (I10) Active confirmed Vital Signs Blood pressure systolic 130 mm Hg 08/30/19 25 Blood pressure diastolic 80 mm Hg 025 Heart Rate 63 /min 08/30/2024 Height 69.50 in 08/30/2024 Weight 217.2 lbs 08/30/2024 BMI 31.61 kg/m2 08/30/2024 Encounters Encounter Location Date Provider Diagnosis [facility] [address] [facility] [address] [place] [id number] 08/30/2024 Sonali Paris Essential hypertensi on I10 [...] Follow Up: 6 Months, Reason: Provider Name:Sonali sage, 01/24/2025 11:00:00 AM, [address] [facility], [address], [place], [phone], Provider Name:Sonali sage, 2025 09:30:00 AM, [address] [facility], [address], [place], [id number], Progress Notes * BURTON MERCADO TDOB: 2 (74 yo M)Acc No.[id number]:08/30/2024 Progress Notes Patient: Michael BURTON MENJIVAR Provider: Sonali Paris M.D. :1950 A ge:74 Y S ex:Male Date:08/30/2024 [facility], [place], [id number] Subjective: * Chief Complaints: * 1 . [...] Hospitalization/Major Diagno stic Procedure: G I bleed [facility] 05/04-05/06/17. * Family History: F ather: [...] 96 >59 - mL/min/1.73m2 * Criss Dyson Shy 09/02/2024 5:12 :35 PM > LM for pt to call Nighat Lynch 09/03/2024 9:14:38 AM > pt informed of results * Procedure Codes: G 2211 Complex e/m visit add on, 3075F SYST BP GE 130 - 139MM HG, 3079F DIAST BP 80-89 MM HG * Follow Up: 6 Months * Images: Billing Information: * Visit Code: 51169 Office Visit, Est Pt., Level 4. * Procedure Codes: G2211 Complex e/m visit add on. 3075F SYST BP GE 130 - 139MM HG. 3079F DIAST BP 80-89 MM HG. * Electronic signature of Sonali Paris MD on 01/10/2025 at 11:33 AM EDT Sign off status: Pending * Provider: Sonali Paris M.D. Date: 0 08/30/2024 Generated for Kellie padgett/Naheed/Gailitting on: 0 01/10/2025 11:33 AM EDT History and Physical Notes * HPI [...]
--- OUTSIDE RECORDS SUMMARY | 2025-01-10 11:33 | XMS_ITS | Clinical Summary ---
Author Organization [facility] Address [address] [place] [address] Phone Care Team Providers Care Appointment Specialist Name Role Phone Unavailable Primary Care [...] Description 03/18/2025 3:00 PM EDT Office [place] [facility] [address] [facility] [address] [place] [address] Jair Smith MD [address] [place] [address] Health Maintenance Due Date Last Done Comments [...] age to complete this topic Insurance MEDICARE IN PART A AND B MEDICARE [place] [address] [place] [address] SUPPLEMENTAL MEDICARE [place] PART A AND B
--- OUTSIDE RECORDS SUMMARY | 2025-01-10 11:33 | XMS_ITS | Clinical Summary ---
Author Organization [facility] Address [address] 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
--- OUTSIDE RECORDS SUMMARY | 2025-01-10 11:33 | XMS_ITS | Referral Summary ---
Author Organization [facility] Address [address] [place] [address] Phone Care Team Providers Care Deputy K 9 Name Role Phone Wellington EGAN MD, Sonali [...] Industry Job Start Date Job End Date [employer]ATE Not on file Not on file Not [...] Plan of Treatment Not on file [facility] on file Care Teams Deputy K 9 Relationship Specialty Start Date End Date Sonali Paris MD, [address] [place] [facility] [address] [address] PCP - General 09/12/05
--- OUTSIDE RECORDS SUMMARY | 2025-01-10 11:33 | XMS_ITS | Clinical Summary ---
Author Organization Healthcare Address [address] [place] [address] Care Team Providers Care Civil Project Engineer Name Role Phone Unavailable Primary Care Provider [...] Date Last Done Comments [facility]-Depression Screening 1950 [facility]-/Child/Adol SDOH Screenings 1950 [facility]- SDOH Screenings 02/27/1970 [facility]-Adult SDOH Screenings 02/27/1970 CT Colonography 02/27/1997 Colonoscopy 02/27/1997 FIT-DNA 02/27/1997 FIT 02/27/1997 FOBT 02/27/1997 Sigmoidoscopy 02/27/1997 [facility]-Colorectal Cancer Screening 02/27/1997 [facility]-Zoster Vaccines (1 of 2) 02/27/2002 [facility]-Pneumococcal Vaccine: 50+ Years (2 of 2 - PPSV23) 08/11/2019 08/11/2018 [id number] Vaccine ( season) 2024 10/04/2021, 05/03/2021, 09/22/2020, [...] age to complete this topic Insurance MEDICARE [facility]
--- OUTSIDE RECORDS SUMMARY | 2025-01-10 11:33 | XMS_ITS | Patient Health Record ---
Author Organization [facility] Address [address] [facility] [address] [place] [id number] Care Team Providers Care Dust Handler Name Role Phone Sonali Paris Primary Care Provider [phone] Allergies No Known Allergies Results Component Value Reference Range Notes CBC Fingerstick (in house) ( Not yet reviewed by provider) Interpretation: Performing Lab: Notes/Report: wbc 8.2 3.5 - 10 lym 17.3 15 - 50 mid 5.0 2 - 15 gran 77.7 35 - 80 rbc 5.35 3.5 - 5.5 hgb 15.9 11.5 - 16.5 hct 48.3 35 - 55 mcv 90.2 75 - 100 mch 29.7 25 - 35 mchc 32.9 31 - 38 plat 347 100 - 400 P-Comprehensive Metabolic Pa bill (CMP) Reviewed date:02/27/2024 10:03:38 AM Interpretation:gluc 112, Cr 0.69 Performing Lab: Notes/Report: Test performed by [email or web address] [facility] , [address], [place] [address] Rob Puckett MD, Tonal Regulator CLIA: [id number] Sodium 139 135-145 mmol/L Potassium 3.8 3.5-5.3 [...] Interpretation:satisfactory Performing Lab: Notes/Report: Test performed by [facility] [address] [place] [address] , [address], [place] [address] Rob Puckett MD, Tonal Regulator CLIA: [id number] Sodium 141 135-145 mmol/L Potassium 3.8 3.5-5.3 [...] MG as directed Orally daily 10/27/2023 Active Amoxicillin-Pot Clavulanate 875-125 MG 1 tablet Orally twice a day Active amLODIPine Besylate 2.5 MG TAKE 1 TABLET EVERY DAY; Duration: 90 Active Immunizations Vaccine Route Administration Date Status Comme nts COVID 19 Moderna Unknown 08/25/2020 Administered COVID 19 Moderna Unknown 09/22/2020 Administered COVID 19 Moderna Unknown 05/03/2021 Administered COVID 19 Moderna Unknown 10/04/2021 Administered Fluzone High Dose (65yr and older) IM Intramuscular 05/01/2019 Administered Fluzone High Dose (65yr and older) Unknown 04/27/2021 Administered Fluzone High Dose (65yr and older) IM Intramuscular 04/06/2022 Administered Fluzone High Dose (65yr and older) IM Intramuscular 04/27/2023 Administered PNEUMOVAX 23 VACCINE IM Intramuscular 03/09/2016 Administe red Prevnar (PCV13) IM Intramuscular 08/11/2018 Administered Shingrix Unknown 10/19/2022 Administered Tetanus Tdap-Adacel (over 7yrs) IM Intramuscular 08/11/2018 Administered xFlu shot-36 months and older IM 04/26/2010 Administered xFluzone High Dose-private (65yr&older) Unknown 05/15/2018 Administered Problems Problem Type SNOMED Code ICD Code Onset Dates Problem Status W/U Status Risk Notes Problem Hyperglycemia (20949329) Hyperglycemia (R73.9) Active confirmed Problem History of malignant melanoma of the skin (324357372706) History of melanoma (Z85.820) Active confirmed Problem Essential hypertension (18295480) Essential hypertension (I10) Active confirmed Problem Pure hypercholesterolemia (945160603) Pure hypercholesterolemia (E78.0) Active confirmed Problem Pain in right leg (466264385) Right leg pain (M79.604) Active confirmed Problem Dyslipidemia (602647982) Dyslipidemia (E78.5) Active confirmed Problem Allergic rhinitis caused by pollen (33534563) Seasonal allergic rhinitis due to pollen (J30.1) Active confirmed Problem Pure hypercholesterolemia (812789739) Pure hypercholesterolemia, unspecified (E78.00) Active confirmed Problem Benign prostatic hypertrophy without outflow obstruction (800163683) Benign prostatic hyperplasia without lower urinary tract symptoms (N40.0) Active confirmed Problem History of gastrointestinal disease (453223757) H/O gastric ulcer (Z87.19) Active confirmed Problem History of polyp of colon (400508653) H/O adenomatous polyp of colon (Z86.010) Active confirmed Vital Signs Heart Rate 75 /min 01/10/2025 Blood pressure diastolic 80 mm Hg 01/10/2025 Height 69.50 in 01/10/2025 Blood pressure systolic 120 mm Hg 01/10/2025 Weight 203 lbs 01/10/2025 BMI 29.54 kg/m2 01/10/2025 Encounters Encounter Location Date [facility] [address] [place] [id number] 08/30/2024 Sonali Paris Essential hypertensi on I10 ; History of melanoma Z85.820 and Benign prostatic hyperplasia without lower urinary tract symptoms N40.0 [facility] [address] [place] [address] [place] [id number] 01/10/2025 Sonali Paris Acute pneumonia J18. 9 ; Weight loss R63.4 ; Essential hypertension I10 and History of melanoma Z85.820 [facility] [address] [place] [address] [place] [id number] 02/26/2024 Sonali Paris Essential hypertensi on, hypertension with unspecified goal I10 ; Benign prostatic hyperplasia without lower urinary tract symptoms N40.0 ; History of melanoma Z85.820 and Pure hypercholesterolemia, unspecified E78.00 [facility] [address] [place] [id number] 02/27/2024 Sonali Paris Assessments Encounter Date Diagnosis (ICD Code) Assessment Notes Treatment Notes Treatment Clinical Notes Section Notes 02/26/2024 Essential hypertension, hypertension with unspecified goal (ICD-10 - I10) 02/26/2024 Benign prostatic hyperplasia without lower urinary tract symptoms (ICD-10 - N40.0) 08/30/2024 History of melanoma (ICD-10 - Z85.820) 08/30/2024 Essential hypertension (ICD-10 - I10) 01/10/2025 Weight loss (ICD-10 - R63.4) 01/10/2025 Acute pneumonia (ICD-10 - J18.9) 02/26/2024 History of melanoma (ICD-10 - Z85.820) 01/10/2025 Essential hypertension (ICD-10 - I10) 08/30/2024 Benign prostatic hyperplasia without lower urinary tract symptoms (ICD-10 - N40.0) 02/26/2024 Pure hypercholesterole rashad, unspecified (ICD-10 - E78.00) 01/10/2025 History of melanoma (ICD-10 - Z85.820) Plan Of Treatment Pending Test Test Name Order Date CXR 01/10/2025 CBC Fingerstick (in house) 01/10/2025 Next Appt Details Provider Name:Sonali Madera er, 01/24/2025 11:00:00 AM, [address], [address], [place], [phone], Provider Name:Sonali Madera er, 2025 09:30:00 AM, [address], [address], [place], [phone], Insurance Providers Payer Name Payer Address Payer Phone Subscriber Number Group Number Insured Name Patient Relationship to Insured Coverage Start Date Coverage End Date MEDICARE PART B [address] [address] [place] [address] [phone] [id number] BURTON MERCADO Self - patient is the insured [facility] [employer] [address] [place] [id number] BURTON MERCADO Self - patient is the insured Medical (General) History Medical History History ICD Code allergies hypertension H. pylori antibody neg 05/2017 Flu shot [facility] Shingrix - 2 Dose - 2019 - [facility] COVID 19 Vaccine 08/26/2020, Moderna COVID 19 Booster, Moderna COVID 19 Booster #2, Moderna 10/04/21 Surgical History Surgery Date(Month/Year) knee 11/04/05 colonoscopy, normal 09/17/09 malignant melanoma, RUQ 2002 EGD and colonoscopy with colon adenomato us polyps 11/28/2017 Follow-up EGD and colonoscopy, with bradley mendiola, Dr. Blood 05/2018 Hospitalization History Reason Date(Month/Year) GI bleed [facility] 05/04-05/06/17
--- NOTE | 2025-01-10 11:35 | XR_ITS ---
FINAL REPORT CLINICAL HISTORY: ACUTE PNEUMONIA FINDINGS: CHEST 2 VIEWS There is minimal left perihilar linear density, favor scar. No pneumonia or underlying mass is identified. There is no evidence of effusion or other pleural disease. The mediastinum has a normal appearance. The cardiac silhouette is unremarkable. IMPRESSION: No acute cardiopulmonary abnormality identified. Reviewed, Interpreted and Dictated by Miranda Nolan MD Transcribed by Sugar Torres Authenticated and . [facility]
== END 2025-01-10 23:59 | disposition home or self-care (01) ==
LOC: RAD 11:31
PROVIDERS: PCP Family Medicine; Visit Provider Family Medicine
DX: J18.9 Pneumonia, unspecified organism (principal)
CPT/HCPCS: 71046

== ENCOUNTER 2025-03-10 12:31 | Outpatient (CLI) | payer MEDICARE, SELFPAY ==
--- OUTSIDE RECORDS SUMMARY | 2024-08-30 05:45 | XMS_ITS ---
Author Organization [facility] [place] Address [address] [facility] [address] [place] [id number] Care Team Providers Care Water Resource Engineer Name Role Phone Sonali Paris Primary Care Provider [phone] Allergies No Known Allergies Results Component Value Reference Range Notes P-Comprehensive Metabolic Pa bill (CMP) Reviewed date:09/03/2024 09:14:53 AM Interpretation:satisfactory Performing Lab: Notes/Report: Test performed by [facility], [address] , [address], [place] [address] Rob Puckett MD, Sports Director CLIA: [id number] Sodium 141 135-145 mmol/L Potassium 3.8 3.5-5.3 mmol/L Chloride 105 97-108 mmol/L CO2 24 22-32 mmol/L Glucose 106 65-99 mg/dL BUN 16 8-23 mg/dL Creatinine 0.75 0.70-1.30 mg/dL Calcium 8.8 8.6-10.4 mg/dL eGFR by Creatinine 96 >59 mL/min/1.73m2 Protein 6.5 6.0-8.3 g/dL Albumin 3.8 3.5-5.3 g/dL Alkaline Phosphatase 88 40-129 IU/L ALT (SGPT) 11 <5-55 IU/L AST (SGOT) 13 <5-46 IU/L Bilirubin, Total 0.7 <0.2-1.2 mg/dL A/G Ratio 1.4 1.1-2.5 REASON FOR VISIT 6 month check up Medications Medication SIG (Take, Route, Frequency, Duration) Notes Start Date End Date Status CoQ10 200 MG as directed Orally daily 10/27/2023 Active Triamterene-HCTZ 37.5-25 MG 1/2 tab orally once a day Active amLODIPine Besylate 2.5 MG TAKE 1 TABLET EVERY DAY; Duration: 90 Active Omeprazole 40 MG TAKE 1 CAPSULE EVERY DAY; Duration: 90 Active Atorvastatin Calcium 40 MG TAKE 1 TABLET EVERY OTHER DAY; Duration: 90 Active Problems Problem Type SNOMED Code ICD Code Onset Dates Problem Status W/U Status Risk Notes Problem Essential hypertension (50816820) Essential hypertension (I10) Active confirmed Vital Signs Blood pressure systolic 130 mm Hg 08/30/19 25 Blood pressure diastolic 80 mm Hg 025 Heart Rate 63 /min 08/30/2024 Height 69.50 in 08/30/2024 Weight 217.2 lbs 08/30/2024 BMI 31.61 kg/m2 08/30/2024 Encounters Encounter Location Date Provider Diagnosis [facility] [address] [facility] [address] [place] [id number] 08/30/2024 Sonali Paris Essential hypertensi on I10 ; History of melanoma Z85.820 and Benign prostatic hyperplasia without lower urinary tract symptoms N40.0 Assessments Encounter Date Diagnosis (ICD Code) Assessment Notes Treatment Notes Treatment Clinical Notes Section Notes 08/30/2024 Essential hypertension (ICD-10 - I10) 08/30/2024 History of melanoma (ICD-10 - Z85.820) 08/30/2024 Benign prostatic hyperplasia without lower urinary tract symptoms (ICD-10 - N40.0) Plan Of Treatment Next Appt Details Follow Up: 6 Months, Reason: Provider Name:Sonali Lopez , 08/08/2025 09:30:00 AM, [address] [facility], [address], [place], [id number], Progress Notes * BURTON MERCADO TDOB: 2 (75 yo M)Acc No.[id number]:08/30/2024 Progress Notes Patient: BURTON CAMPOS Provider: Sonali Paris M.D. :1950 A ge:74 Y S ex:Male Date:08/30/2024 Address:[address] [place] [address] [address], [place], [id number] Subjective: * Chief Complaints: * 1 . 6 month check up. * HPI: C ardiology: The patient is here for a check up on Hypertension and Hyperlipidemia. Pt states he is doing good and denies any new concerns. Pt is fasting. Denies : Chest Pain. D enies : Short of Breath. D enies : Dizziness. D enies : Palpitations. * ROS: D ERMATOLOGY: no R karuna. n o H olive. G ASTROENTEROLOGY: no N ausea. n o V omiting. n o D iarrhea.? U ROLOGY: no D ifficulty urinating. n o B lood in urine. * Medical History: A llergies, Hypertension, H. pylori antibody neg 05/2017, 2018 Flu shot [facility], Shingrix - 2 Dose - 2019 - [facility], COVID 19 Vaccine 08/26/2020, Moderna, COVID 19 Booster, Moderna, COVID 19 Booster #2, Moderna 10/04/21. * Surgical History: k nee 11/04/05, colonoscopy, normal 09/17/09, malignant melanoma, RUQ 2002, EGD and colonoscopy with colon adenomatous polyps 11/28/2017, Follow-up EGD and colonoscopy, with polypectomies, Dr. Blood 05/2018. * Hospitalization/Major Diagno stic Procedure: G I bleed [facility] 05/04-05/06/17. * Family History: F ather: 86 yrs. M other: 45 yrs. 6 brother(s) , 2 sister(s) . .? * Social History: C URRENT TOBACCO USE S moking Status: Patient does NOT smoke. C affeine: yes, frequency:. Marital Status: Single. Past smoking status: no, Smoking status: Does not smoke. Alcohol: No. * Medications: T aking CoQ10 200 MG Capsule as directed Orally daily , Taking Triamterene-HCTZ 37.5-25 MG Tablet 1/2 tab orally once a day , Taking amLODIPine Besylate 2.5 MG Tablet TAKE 1 TABLET EVERY DAY , Taking Omeprazole 40 MG Capsule Delayed Release TAKE 1 CAPSULE EVERY DAY , Taking Atorvastatin Calcium 40 MG Tablet TAKE 1 TABLET EVERY OTHER DAY , Medication List reviewed and reconciled with the patient * Allergies: N .K.D.A. Objective: * Vitals: W t:217.2, Temp:97.7, BP:130/80, HR:63, Nurse:ALICIA, Ht: 69.50, BMI:31.61. * Examination: G eneral Examination: General Appearance: N AD. H EENT: u nremarkable.?Oral cavity: n o lesions, mucosa moist and WNL, no erythema. N jaycob: s upple, no lymphadenopathy, no carotid bruits. C hest: n ormal shape and expansion. H eart: R SR. Lungs: c lear to auscultation. A bdomen: soft and nontender, no organomegaly or masses. N eurologic Exam: I ntact, gait normal. S kin: n ormal, no rash. Healed biopsy site left upper/lateral side of chest.. P eripheral pulses: n ormal . B ack: mild dorsal kyphosis. E xtremities: n o leg edema. Assessment: * Assessment: 1. E ssential hypertension - I10 (Primary) 2 . H istory of melanoma - Z85.820 3 . B enign prostatic hyperplasia without lower urinary tract symptoms - N40.0 Plan: * Treatment: Value Reference Range A /G Ratio 1.4 1.1-2.5 - * A lbumin 3.8 3.5-5.3 - g/dL * A lkaline Phosphatase 88 40-129 - IU/L * A LT (SGPT) 11 <5-55 - IU/L * A ST (SGOT) 13 <5-46 - IU/L * B ilirubin, Total 0.7 <0.2-1.2 - mg/dL * B UN 16 8-23 - mg/dL * C alcium 8.8 8.6-10.4 - mg/dL * C hloride 105 97-108 - mmol/L * C O2 24 22-32 - mmol/L * C reatinine 0.75 0.70-1.30 - mg/dL * G lucose 106 H 65-99 - mg/dL * P otassium 3.8 3.5-5.3 - mmol/L * S odium 141 135-145 - mmol/L * P rotein 6.5 6.0-8.3 - g/dL * e GFR by Creatinine 96 >59 - mL/min/1.73m2 * Criss Dyson 09/02/2024 5:12 :35 PM > LM for pt to call Nighat Lynch 09/03/2024 9:14:38 AM > pt informed of results * Procedure Codes: G 2211 Complex e/m visit add on, 3075F SYST BP GE 130 - 139MM HG, 3079F DIAST BP 80-89 MM HG * Follow Up: 6 Months * Images: Billing Information: * Visit Code: 55366 Office Visit, Est Pt., Level 4. * Procedure Codes: G2211 Complex e/m visit add on. 3075F SYST BP GE 130 - 139MM HG. 3079F DIAST BP 80-89 MM HG. * Electronic signature of Sonali Paris MD on 03/10/2025 at 12:34 PM EDT Sign off status: Pending * Provider: Sonali Paris M.D. Date: 0 08/30/2024 Generated for Printi ng/Faramóng/eTransmitting on: 0 03/10/2025 12:34 PM EDT History and Physical Notes * HPI (History of Present Illness) Category Sub-Category Detail Notes Category Not es Cardiology Short of Breath Chest Pain Palpitations Dizziness Examination Category Sub-Category Detail Notes Category Not es General Examination HEENT: unremarkable Heart: RSR Lungs: clear to auscultatio n Abdomen: soft and nontender, no organomegaly or masses Extremities: no leg edema General Appearance: NAD Skin: normal, no rash. Hea led biopsy site left upper/lateral side of chest. Neurologic Exam: Intact, gait normal Neck: supple, no lymphaden opathy, no carotid bruits Oral cavity: no lesions, mucosa m oist and WNL, no erythema Peripheral pulses: normal Back: mild dorsal kyphosis Chest: normal shape and exp ansion
--- OUTSIDE RECORDS SUMMARY | 2025-01-10 06:15 | XMS_ITS ---
Author Organization [facility] Address [address] [place] [id number] Care Team Providers Care Beamer Helper Name Role Phone Sonali Paris Primary Care Provider Allergies No Known Allergies Results Component Value Reference Range Notes CBC Fingerstick (in house) Reviewed date:01/13/2025 02:54:03 PM Interpretation: Performing Lab: Notes/Report: wbc 8.2 3.5 - 10 lym 17.3 15 - 50 mid 5.0 2 - 15 gran 77.7 35 - 80 rbc 5.35 3.5 - 5.5 hgb 15.9 11.5 - 16.5 hct 48.3 35 - 55 mcv 90.2 75 - 100 mch 29.7 25 - 35 mchc 32.9 31 - 38 plat 347 100 - 400 CXR Reviewed date:01/13/2025 05:23:58 PM Interpretation:nothing acute Performing Lab: Notes/Report: nothing acute REASON FOR VISIT f/u [facility] ER / pneumonia Medications Medication SIG (Take, Route, Frequency, Duration) Notes Start Date End Date Status Omeprazole 40 MG TAKE 1 CAPSULE EVERY DAY; Duration: 90 Active Atorvastatin Calcium 40 MG TAKE 1 TABLET EVERY OTHER DAY; Duration: 90 Active Triamterene-HCTZ 37.5-25 MG TAKE 1/2 TAB LET ONE TIME DAILY; Duration: 90 Active CoQ10 200 MG as directed Orally daily 10/27/2023 Active amLODIPine Besylate 2.5 MG TAKE 1 TABLET EVERY DAY; Duration: 90 Active Amoxicillin-Pot Clavulanate 875-125 MG 1 tablet Orally twice a day Active Vital Signs Blood pressure systolic 120 mm Hg 01/11/20 25 Blood pressure diastolic 80 mm Hg 025 Heart Rate 75 /min 01/10/2025 Height 69.50 in 01/10/2025 Weight 203 lbs 01/10/2025 BMI 29.54 kg/m2 01/10/2025 Encounters Encounter Location Date Provider Diagnosis [facility] [address] [facility] [address] [place], [place] [id number] 01/10/2025 Sonali Paris Acute pneumonia J18. 9 ; Weight loss R63.4 ; Essential hypertension I10 ; History of melanoma Z85.820 ; Pure hypercholesterolemia, unspecified E78.00 and BMI 29.0-29.9,adult Z68.29 Assessments Encounter Date Diagnosis (ICD Code) Assessment Notes Treatment Notes Treatment Clinical Notes Section Notes 01/10/2025 Acute pneumonia (ICD-10 - J18.9) 01/10/2025 Weight loss (ICD-10 - R63.4) 01/10/2025 Essential hypertension (ICD-10 - I10) 01/10/2025 History of melanoma (ICD-10 - Z85.820) 01/10/2025 Pure hypercholesterole rashad, unspecified (ICD-10 - E78.00) 01/10/2025 BMI 29.0-29.9,adult (ICD-10 - Z68.29) Plan Of Treatment Next Appt Details Follow Up: 2 Weeks, Reason: Provider Name:Sonali Lopez er, 08/08/2025 09:30:00 AM, [address] [facility] [address], [address], [place], [id number], Progress Notes * BURTON MERCADO TDOB: [birth year] (75 yo M)Acc No.[id number]:01/10/2025 Patient: Michael BURTON MENJIVAR Provider: Sonali Paris M.D. :1950 A ge:74 Y S ex:Male Date:01/10/2025 Address:[address] [place], [id number] Subjective: * Chief Complaints: * 1 . f/u [facility] ER / pneumonia. * HPI: H PI: Patient is here today for f /u from ER [facility] with Pneumonia on 01/05/25. Pt has papers with him. Pt states he is some better but still weak. * ROS: D ERMATOLOGY: no R karuna. [...] Hospitalization/Major Diagno stic Procedure: G I bleed [facility] 05/04-05/06/17. * Family History: F ather: 86 yrs. M other: 45 yrs. 6 brother(s) , 2 sister(s) . .? * Social History: C URRENT TOBACCO USE S moking Status: Patient does NOT smoke. C affeine: yes, frequency:. Marital Status: Single. Past smoking status: no, Smoking status: Does not smoke. Alcohol: No. * Medications: T aking Amoxicillin-Pot Clavulanate 875-125 MG Tablet 1 tablet Orally twice a day , Taking CoQ10 200 MG Capsule as directed Orally daily , Taking Triamterene-HCTZ 37.5-25 MG Tablet TAKE 1/2 TABLET ONE TIME DAILY , Taking Atorvastatin Calcium 40 MG Tablet TAKE 1 TABLET EVERY OTHER DAY , Taking Omeprazole 40 MG Capsule Delayed Release TAKE 1 CAPSULE EVERY DAY , Taking amLODIPine Besylate 2.5 MG Tablet TAKE 1 TABLET EVERY DAY , Medication List reviewed and reconciled with the patient * Allergies: N .K.D.A. Objective: * Vitals: W t: 203, Temp: 97.7, BP: 120/80, HR: 75, Nurse: pe, Ht: 69.50, BMI:29.54. * Examination: G eneral Examination: General Appearance: N AD, note weight loss. H EENT:?unremarkable. O ral cavity: n o lesions, mucosa moist and WNL, no erythema. N jaycob: ?supple, no lymphadenopathy, no carotid bruits. C hest: n ormal shape and expansion. H eart: R SR. L ungs: c lear to auscultation. A bdomen: soft and nontender, no organomegaly or masses. N eurologic Exam: I ntact, gait normal. S kin: n ormal, no rash. Healed biopsy site left upper/lateral side of chest.. P eripheral pulses: n ormal . B ack: mild dorsal kyphosis. E xtremities: n o leg edema. ? Assessment: * Assessment: 1. A cute pneumonia - J18.9 (Primary) 2 . W eight loss - R63.4 ?3. E ssential hypertension - I10 4 . H istory of melanoma - Z85.820? 5. P ure hypercholesterolemia, unspecified - E78.00 6 . B [place] 29.0-29.9,adult - Z68.29 Plan: * Treatment: Value Reference Range w bc 8.2 3.5 - 10 * l ym 17.3 15 - 50 * m id 5.0 2 - 15 * g ran 77.7 35 - 80 * r bc 5.35 3.5 - 5.5 * h gb 15.9 11.5 - 16.5 * h ct 48.3 35 - 55 * m cv 90.2 75 - 100 * m ch 29.7 25 - 35 * m chc 32.9 31 - 38 * p lat 347 100 - 400 * Jessika Ortega 01/10/2025 1 1:05:50 AM EDT > Provider reviewed results while patient in office. ?Imaging: CXR (Performed Date - 01/10/2025)?nothing acute* Criss Dyson 01/13/2025 05 :23:50 PM EDT > Patient informed of normal results. * Procedure Codes: G 2211 Complex e/[place], [address] CAPILLARY BLOOD DRAW, 18325 CBC WITH AUTO DIFF, 1036F TOBACCO NON-USER, G8950 PREHTN/HTN BP DOC INDCD F/U DOC, G8752 MOST RECENT SYSTOLIC BP < 140MM HG, G8754 MOST RECENT DIASTOLIC BP < 90MM HG * Follow Up: 2 Weeks * Images: Billing Information: * Visit Code: 75883 Office Visit, Est Pt., Level 4. * Procedure Codes: G2211 Complex e/[place]. [address] CAPILLARY BLOOD DRAW. 13158 CBC WITH AUTO DIFF. 1036F TOBACCO NON-USER. G8950 PREHTN/HTN BP DOC INDCD F/U DOC. G8752 MOST RECENT SYSTOLIC BP < 140MM HG. G8754 MOST RECENT DIASTOLIC BP < 90MM HG. * Electronic signature of Sonali Paris MD on 03/10/2025 at 12:34 PM EDT Sign off status: Pending * Provider: Sonali Paris M.D. Date: 0 01/10/2025 Generated for Rojelioi ng/Faxing/eTransmitting on: 0 03/10/2025 12:34 PM EDT History and Physical Notes * HPI (History of Present Illness) Category Sub-Category Detail Notes Category Not es HPI Patient is here today for f/u fr om ER [facility] with Pneumonia on 01/05/25. Pt has papers with him. Pt states he is some better but still weak Examination Category Sub-Category Detail Notes Category Not es General Examination HEENT: unremarkable Heart: RSR Lungs: clear to auscultatio n Abdomen: soft and nontender, no organomegaly or masses Extremities: no leg edema General Appearance: NAD, note weight los s Skin: normal, no rash. Hea led biopsy site left upper/lateral side of chest. Neurologic Exam: Intact, gait normal Neck: supple, no lymphaden opathy, no carotid bruits Oral cavity: no lesions, mucosa m oist and WNL, no erythema Peripheral pulses: normal Back: mild dorsal kyphosis Chest: normal shape and exp ansion
--- OUTSIDE RECORDS SUMMARY | 2025-01-24 07:00 | XMS_ITS ---
Author Organization [facility] Address [address] [facility] [address] [place] [phone] Care Team Providers Care Plastic Surgery Coordinator Name Role Phone Sonali Paris Primary Care Provider [phone] REASON FOR VISIT 2 weeks Encounters Encounter Location Date Provider Diagnosis [facility] [address] [facility] [address] [place] [phone] 01/24/2025 Sonali Paris Plan Of Treatment Next Appt Details Provider Name:Sonali Lopez er, 08/08/2025 09:30:00 AM, [address], [address], [place], [phone], Progress Notes * BURTON MERCADO TDOB: 2 (75 yo M)Acc No.[id number]:01/24/2025 Progress Notes Patient: BURTON CAMPOS Provider: Sonali Paris M.D. :1950 A ge:74 Y S ex:Male Date:01/24/2025 Address:[address], [place], [id number] Subjective: * Chief Complaints: * 1 . 2 weeks. * Medical History: Objective: * Vitals: Assessment: Plan: * Treatment: * Images: Billing Information: * Visit Code: * Procedure Codes: * Electronic signature of Sonali Paris MD on 03/10/2025 at 12:34 PM EDT Sign off status: Pending * Provider: Sonali Paris M.D. Date: 01/24/2025 Generated for Kellie padgett/Naheed/Gailitting on: 0 03/10/2025 12:34 PM EDT
--- OUTSIDE RECORDS SUMMARY | 2025-02-28 05:30 | XMS_ITS ---
Author [facility] Address [address] [facility] [address] [place], [place] [id number] Care Team Providers Care Cured Meat Packing Supervisor Name Role Phone Sonali Paris Primary Care Provider Allergies No Known Allergies Results Component Value Reference Range Notes P-Comprehensive Metabolic Pa bill (CMP) Reviewed date:03/04/2025 02:28:33 PM Interpretation:Normal Performing Lab: Notes/Report: Test performed by [employer] [address] [place] [address] , [address], [place] [address] Rob Puckett MD, Soil Conservation Teacher CLIA: [id number] Sodium 142 135-145 mmol/L Potassium 3.9 3.5-5.3 mmol/L Chloride 106 97-108 mmol/L CO2 26 20-32 mmol/L Glucose 108 65-99 mg/dL BUN 21 8-23 mg/dL Creatinine 0.80 0.70-1.30 mg/dL Calcium 8.8 8.6-10.4 mg/dL eGFR by Creatinine 93 >59 mL/min/1.73m2 Protein 6.2 6.0-8.3 g/dL Albumin 3.8 3.5-5.3 g/dL Alkaline Phosphatase 79 40-129 IU/L ALT (SGPT) 15 <5-55 IU/L AST (SGOT) 17 <5-46 IU/L Bilirubin, Total 0.6 <0.2-1.2 mg/dL A/G Ratio 1.6 1.1-2.5 P-Lipid Panel Reviewed date:03/04/2025 02:28:34 PM Interpretation:Normal Performing Lab: Notes/Report: Test performed by [employer] [address] [place] [address] , [address], [place] [address] Rob Puckett MD, Soil Conservation Teacher CLIA: [id number] Cholesterol 135 <200 mg/dL Triglycerides 53 <150 mg/dL HDL Cholesterol 55 >39 mg/dL Cholesterol / HDL Ratio 2.45 0.00-4.99 Ratio Non-HDL Cholesterol 80 <130 mg/dL LDL Cholesterol (Calculation) 69 <130 mg/dL LDL Cholesterol Levels* Less than 100 mg/dL Optimal 100 to 129 mg/dL Near Optimal/ Above Optimal 130 to 159 mg/dL Borderline High 160 to 189 mg/dL High 190 mg/dL and above Very High * Categories as recommended by the 2004 ATPIII guidelines LDL/HDL Ratio 1.3 <3.3 Ratio LDL Cholesterol Patient History Test Date: 2025 LDL Results: 69 Units: mg/dL % Change: - REASON FOR VISIT 6 month f/u, Needs labs with PSA, due col Medications Medication SIG (Take, Route, Frequency, Duration) Notes Start Date End Date Status CoQ10 200 MG as directed Orally daily 10/27/2023 Not-Taking Atorvastatin Calcium 40 MG TAKE 1 TABLET EVERY OTHER DAY; Duration: 90 Active Triamterene-HCTZ 37.5-25 MG TAKE 1/2 TABLET ONE TIME DAILY; Duration: 90 Active amLODIPine Besylate 2.5 MG 1 tablet Orally Once a day; Duration: 90 days Active Omeprazole 40 MG TAKE 1 CAPSULE EVERY DAY; Duration: 90 Active Vital Signs Blood pressure systolic 130 mm Hg 02/29/20 25 Blood pressure diastolic 90 mm Hg 025 Heart Rate 54 /min 2025 Height 69.50 in 2025 Weight 211.4 lbs 2025 BMI 30.77 kg/m2 2025 Encounters Encounter Location Date Provider Diagnosis [facility] [address] [facility] [address] [facility] [address] [place], [place] [id number]25 Sonali Paris Essential hypertensi on I10 ; H/O gastric ulcer Z87.19 ; History of melanoma Z85.820 and Pure hypercholesterolemia, unspecified E78.00 Assessments Encounter Date Diagnosis (ICD Code) Assessment Notes Treatment Notes Treatment Clinical Notes Section Notes 2025 Essential hypertension (ICD-10 - I10) 2025 H/O gastric ulcer (ICD-10 - Z87.19) 2025 History of melanoma (ICD-10 - Z85.820) 2025 Pure hypercholesterole rashad, unspecified (ICD-10 - E78.00) Plan Of Treatment Next Appt Details Follow Up: 5M, Reason: Provider Name:Sonali Lopez er, 08/08/2025 09:30:00 AM, [address] [facility] [address] [facility], [address], [place], [place], [id number], Progress Notes * BURTON MERCADO TDOB: 2 (75 yo M)Acc No.[id number]:2025 Progress Notes Patient: Michael MENJIVAR BURTON Rodriguez Provider: Sonali Paris M.D. :1950 A ge:75 Y S ex:Male Date:2025 Address:[address] [facility], [place], [id number] Subjective: * Chief Complaints: * 1 . 6 month f/u. 2. Needs labs with PSA. 3. Due col. * HPI: C ardiology: The patient is here today for a check up on Hypertension and Hyperlipidemia. Pt states he does check his BP occasionally and it has been doing good. Pt denies any new concerns. Pt is fasting. [...] Hospitalization/Major Diagno stic Procedure: G I bleed [facility] 05/04-05/06/17. * Family History: F ather: 86 yrs. M other: 45 yrs. 6 brother(s) , 2 sister(s) . .? * Social History: C URRENT TOBACCO USE S moking Status: Patient does NOT smoke. C affeine: yes, frequency:. Marital Status: Single. Past smoking status: no, Smoking status: Does not smoke. Alcohol: No. * Medications: T aking Triamterene-HCTZ 37.5-25 MG Tablet TAKE 1/2 TABLET ONE TIME DAILY , Taking Atorvastatin Calcium 40 MG Tablet TAKE 1 TABLET EVERY OTHER DAY , Taking Omeprazole 40 MG Capsule Delayed Release TAKE 1 CAPSULE EVERY DAY , Taking amLODIPine Besylate 2.5 MG Tablet 1 tablet Orally Once a day , Not-Taking CoQ10 200 MG Capsule as directed Orally daily , Discontinued Amoxicillin-Pot Clavulanate 875-125 MG Tablet 1 tablet Orally twice a day , Medication List reviewed and reconciled with the patient * Allergies: N .K.Anderson.Jennifer. Objective: * Vitals: W t: 211.4, Temp: 98.1, BP: 130/90, HR: 54, Nurse: ALICIA, Ht: 69.50, Repeat BP: 132/74, BMI:30.77. * Examination: G eneral Examination: General Appearance: N AD, note weight . H EENT:?unremarkable. O ral cavity: n o lesions, mucosa moist and WNL, no erythema. N jaycob: ?supple, no lymphadenopathy, no carotid bruits. C hest: n ormal shape and expansion. H eart: R SR. L ungs: c lear to auscultation. A bdomen: soft and nontender, no organomegaly or masses. N eurologic Exam: I ntact, gait normal. S kin: m ultiple scattered nevi. P eripheral pulses: n ormal . B ack: mild dorsal kyphosis. E xtremities: n o leg edema. Assessment: * Assessment: 1. E ssential hypertension - I10 (Primary) 2 . H /O gastric ulcer - Z87.19? 3. H istory of melanoma - Z85.820 4 . P ure hypercholesterolemia, unspecified - E78.00 Plan: * Treatment: Value Reference Range A /G Ratio 1.6 1.1-2.5 - * A lbumin 3.8 3.5-5.3 - g/dL * A lkaline Phosphatase 79 40-129 - IU/L * A LT (SGPT) 15 <5-55 - IU/L * A ST (SGOT) 17 <5-46 - IU/L * B ilirubin, Total 0.6 <0.2-1.2 - mg/dL * B UN 21 8-23 - mg/dL * C alcium 8.8 8.6-10.4 - mg/dL * C hloride 106 97-108 - mmol/L * C O2 26 20-32 - mmol/L * C reatinine 0.80 0.70-1.30 - mg/dL * G lucose 108 H 65-99 - mg/dL * P otassium 3.9 3.5-5.3 - mmol/L * S odium 142 135-145 - mmol/L * P rotein 6.2 6.0-8.3 - g/dL * e GFR by Creatinine 93 >59 - mL/min/1.73m2 * Criss Dyson 03/04/2025 02: 28:16 PM EDT > Patient informed of normal results. ?LAB: P-Lipid Panel (Collection Date & Time - 2025 12:56 PM)?Normal* Value Reference Range C holesterol / HDL Ratio 2.45 0.00-4.99 - Ratio * C holesterol 135 <200 - mg/dL * H DL Cholesterol 55 >39 - mg/dL * L DL Cholesterol (Calculation) 69 <130 - mg/d L * L DL/HDL Ratio 1.3 <3.3 - Ratio * N on-HDL Cholesterol 80 <130 - mg/dL * T riglycerides 53 <150 - mg/dL * Criss Dyson 03/04/2025 02: 28:16 PM EDT > Patient informed of normal results. * Follow Up: 5 M * Images: Billing Information: * Visit Code: 74753 Office Visit, Est Pt., Level 4. * Procedure Codes: * Electronic signature of Sonali Paris MD on 03/10/2025 at 12:33 PM EDT Sign off status: Pending * Provider: Sonali Paris M.D. Date: 0 2025 Generated for Kellie padgett/Naheed/eTransmitting on: 0 03/10/2025 12:33 PM EDT History and Physical Notes * HPI (History of Present Illness) Category Sub-Category Detail Notes Category Not es Cardiology Short of Breath Chest Pain Palpitations Dizziness Examination Category Sub-Category Detail Notes Category Not es General Examination HEENT: unremarkable Heart: RSR Lungs: clear to auscultatio n Abdomen: soft and nontender, no organomegaly or masses Extremities: no leg edema General Appearance: NAD, note weight Skin: multiple scattered n marian Neurologic Exam: Intact, gait normal Neck: supple, no lymphaden opathy, no carotid bruits Oral cavity: no lesions, mucosa m oist and WNL, no erythema Peripheral pulses: normal Back: mild dorsal kyphosis Chest: normal shape and exp ansion
--- NOTE | 2025-03-10 12:32 | XR_ITS ---
FINAL REPORT CLINICAL HISTORY: left knee pain FINDINGS: AP, lateral and oblique views of the left knee were obtained. There is no prior exam for comparison. There is no acute osseous abnormality of the left knee. There is degenerative joint disease, most pronounced in the medial compartment. The soft tissues are normal. There is no joint effusion. IMPRESSION: Degenerative joint disease. Reviewed, Interpreted and Dictated by Niki Olmos MD Transcribed by Olga Lora Authenticated and [facility]
--- OUTSIDE RECORDS SUMMARY | 2025-03-10 12:34 | XMS_ITS | Clinical Summary ---
Author Organization [facility] Address [address] [place] [address] Phone Care Team Providers Care District Captain Name Role Phone Unavailable Primary Care Provider [...] Description 03/18/2025 3:00 PM EDT Office Visit [facility] Dermatology [facility] [address] [facility] [address] [place] [address] Jari Smith MD [address] [place] [address] Health Maintenance Due Date Last Done Comments Wellness Exam Medicare 02/27/1953 Hepatitis C Screening 02/27/1970 Cologuard 02/27/1997 Colon Cancer Screening 02/27/1997 Colonoscopy 02/27/1997 FIT 02/27/1997 Sigmoidoscopy 02/27/1997 Virtual Colonography 02/27/1997 Pneumococcal Vaccine 50+ (2 of 2 - PCV20 or PCV21) 08/11/2019 08/11/2018 COVID-19 Vaccine ( season) 2025 05/02/2024, 07/04/2023, 06/20/2022, Additional history exists Influenza [...] B MEDICARE [place] [address] [place] [address] SUPPLEMENTAL MEDICARE [place] PART A AND B
--- OUTSIDE RECORDS SUMMARY | 2025-03-10 12:34 | XMS_ITS | Patient Health Record ---
Author Organization [facility] Address [address] [facility] [address] [place] [id number] Care Team Providers Care Metallurgical Analyst Name Role Phone Sonali Paris Primary Care Provider [phone] Allergies No Known Allergies Results Component Value Reference Range Notes P-Comprehensive Metabolic Pa bill (CMP) Reviewed date:03/04/2025 02:28:33 PM Interpretation:Normal Performing Lab: Notes/Report: Test performed by [facility] [address] [place], [place] [address] [place] , [address], [place] [address] Rob Puckett MD, Office Automation Technician CLIA: [id number] Sodium 142 135-145 mmol/L Potassium 3.9 3.5-5.3 [...] Interpretation:Normal Performing Lab: Notes/Report: Test performed by [facility] [place] [address] Rob Puckett MD, Office Automation Technician CLIA: [id number] Cholesterol 135 <200 mg/dL Triglycerides 53 <150 [...] Results: 69 Units: mg/dL % Change: - P-Comprehensive Metabolic Pa bill (CMP) Reviewed date:09/03/2024 09:14:53 AM Interpretation:satisfactory Performing Lab: Notes/Report: Test performed by [employer] [address] [facility] [place] [address] Rob Puckett MD, Office Automation Technician CLIA: [id number] Sodium 141 135-145 mmol/L Potassium 3.8 3.5-5.3 [...] 0.7 <0.2-1.2 mg/dL A/G Ratio 1.4 1.1-2.5 CBC Fingerstick (in house) Reviewed date:01/13/2025 02:54:03 [...] Interpretation:nothing acute Performing Lab: Notes/Report: nothing acute Medications Medication SIG (Take, Route, Frequency, Duration) [...] 1 CAPSULE EVERY DAY; Duration: 90 Active Immunizations Vaccine [...] Problem Status W/U Status Risk Notes Problem History of malignant melanoma of the skin (187824933278) History of melanoma (Z85.820) Active confirmed Problem Essential hypertensi on (56849697) Essential hypertension (I10) Active confirmed Problem Dyslipidemia (534580280) Dyslipidemia (E78.5) Active confirmed Problem Allergic rhinitis caused by pollen (51311563) Seasonal allergic rhinitis due to pollen (J30.1) Active confirmed Problem Pure hypercholesterolemia (291551921) Pure hypercholester olemia, unspecified (E78.00) Active confirmed Problem Benign prostatic hypertrophy without outflow obstruction (232557934) Benign prostatic hyperplasia without lower urinary tract symptoms (N40.0) Active confirmed Problem History of gastrointestinal disease (228249249) H/O gastric ulcer (Z87.19) Active confirmed Problem History of polyp of colon (615799889) H/O adenomatous polyp of colon (Z86.010) Active confirmed Vital Signs Heart Rate 54 /min 2025 Blood pressure diastolic 90 mm Hg 2025 Height 69.50 in 2025 Blood pressure systolic 130 mm Hg 2025 Weight 211.4 lbs 2025 BMI 30.77 kg/m2 2025 Encounters Encounter Location Date Provider Diagnosis [facility] [address] [place], [place] [id number] 08/30/2024 Sonali Paris Essential hypertensi on I10 ; History of melanoma Z85.820 and Benign prostatic hyperplasia without lower urinary tract symptoms N40.0 [facility] [address] [address] [place], [place] [id number] 01/10/2025 Sonali Paris Acute pneumonia J18. 9 ; Weight loss R63.4 ; Essential hypertension I10 ; History of melanoma Z85.820 ; Pure hypercholesterolemia, unspecified E78.00 and BMI 29.0-29.9,adult Z68.29 [facility] [address] [facility] [address] [place], [place] [id number] 2025 Sonali Paris Essential hypertensi on I10 ; H/O gastric ulcer Z87.19 ; History of melanoma Z85.820 and Pure hypercholesterolemia, unspecified E78.00 [facility] [address] [facility] [address] [place], [place] [id number] 01/27/2025 Sonali Paris Assessments Encounter Date Diagnosis (ICD Code) Assessment Notes Treatment Notes Treatment Clinical Notes Section Notes 01/10/2025 Weight loss (ICD-10 - R63.4) 01/10/2025 Acute pneumonia (ICD-10 - J18.9) 2025 Essential hypertension (ICD-10 - I10) 08/30/2024 History of melanoma (ICD-10 - Z85.820) 08/30/2024 Essential hypertension (ICD-10 - I10) 08/30/2024 Benign prostatic hyperplasia without lower urinary tract symptoms (ICD-10 - N40.0) 2025 H/O gastric ulcer (ICD-10 - Z87.19) 01/10/2025 Essential hypertension (ICD-10 - I10) 2025 History of melanoma (ICD-10 - Z85.820) 01/10/2025 History of melanoma (ICD-10 - Z85.820) 01/10/2025 Pure hypercholesterole rashad, unspecified (ICD-10 - E78.00) 2025 Pure hypercholesterole rashad, unspecified (ICD-10 - E78.00) 01/10/2025 BMI 29.0-29.9,adult (ICD-10 - Z68.29) Plan Of Treatment Next Appt Details Provider Name:Sonali Lopez er, 08/08/2025 09:30:00 AM, [address], [address], [place], [phone], Insurance Providers Payer Name Payer Address Payer Phone Subscriber Number Group Number Insured Name Patient Relationship to Insured Coverage Start Date Coverage End Date MEDICARE PART B [address] [address] [place] [address] [id number] BURTON MERCADO Self - patient is the insured [facility] [employer] [address] [place] [id number] BURTON MERCADO Self - patient is the [...] polyps 11/28/2017 Follow-up EGD and colonoscopy, with Dr. Jeremi tyler 05/2018 Hospitalization History Reason Date(Month/Year) GI bleed [facility] 05/04-05/06/17
--- OUTSIDE RECORDS SUMMARY | 2025-03-10 12:34 | XMS_ITS | Clinical Summary ---
Author Organization [facility] Address [address] 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
--- OUTSIDE RECORDS SUMMARY | 2025-03-10 12:34 | XMS_ITS | Referral Summary ---
Author Organization [facility] Address [address] [place] [address] Phone Care Team Providers Care Digital Commentator Name Role Phone Wellington EGAN MD, Sonali [...] Industry Job Start Date Job End Date [employer] Not on file Not on file Not [...] Plan of Treatment Not on file Insurance [employer] SU[employer]LEMENT Member Subscriber Plan / Payer (Ef fective 2017-Present) Name:Charlie Stephenson Relation to Subscriber:Self Name:Charlie Stephenson Payer ID:[id number] (NAIC) Group ID:Not on file Type:[email or web address] Address: [address] [address] MEDICARE on file Care Teams Digital Commentator Relationship Specialty Start Date End Date Sonali Paris MD, [facility] [place] [address] [address] [place] [address] PCP - General 09/12/05
--- OUTSIDE RECORDS SUMMARY | 2025-03-10 12:35 | XMS_ITS | Clinical Summary ---
Author Organization [facility] Address [address] [place] [address] Care Team Providers Care Psychometric Examiner Name Role Phone Unavailable Primary Care Provider [...] (2 of 2 - PPSV23) 08/11/2019 08/11/2018 [id number] Vaccine ( season) 2024 10/04/2021, 05/03/2021, 09/22/2020, [...] age to complete this topic Insurance MEDICARE [facility]
== END 2025-03-10 23:59 | disposition home or self-care (01) ==
LOC: RAD 12:32
PROVIDERS: Visit Provider Physician Assistant
DX: M17.12 Unilateral primary osteoarthritis, left knee (principal)
CPT/HCPCS: 73562